=== PATIENT | female | born 1945 | race Caucasian/White ===

== ENCOUNTER 2016-12-13 10:48 | Inpatient (IN) | payer OTHER ==
[~2016-12-13] VITALS: Ht 152.4 cm; Wt 43.8 kg
--- NOTE | ~2016-12-13 | PR ---
[place], [place] PROGRESS NOTE NAME: LUIS GASPAR UNIT #: [id number] ROOM: 428 DOCTOR: FLAVIA ELDRIDGE MD BIRTHDATE: [birth year] DOS: 12/17/2016 SUBJECTIVE: She has been still complaining of pain in the back of the chest. Denies symptoms of nausea, vomiting, diarrhea. MRI of the spine was completed yesterday. OBJECTIVE: VITAL SIGNS: Shows a normal temperature, respiratory rate 20, heart rate of 80, blood pressure 186/60-126/51. Pulse oxygen saturation of the patient on 2 L nasal cannula 95% saturation. HEENT: Showed no acute change. NECK: Supple. CARDIOVASCULAR SYSTEM: S1, S2 is audible. LUNGS: The patient was noted without any wheeze or crackles. ABDOMEN: Soft, nontender. LABORATORY DATA: MRI of the thoracic spine for this patient was reviewed with the patient the results were reported by the Radiology Services as acute versus subacute compression fracture of T6, T7, T8, T10 and T12 vertebral bones. severe end plate compression of the L2 was also described. Mild retropulsion of the patient with underlying degenerative disk disease the patient was described focal area with mild central stenosis. IMPRESSION: 1. The patient with multilevel compression fractures the patient someone will be acute the other one could be old resulting current chest pain. 2. Acute exacerbation of chronic obstructive pulmonary disease as well. 3. History of chronic prednisone use as well. PLAN OF TREATMENT: Assessment by the invasive radiologist for kyphoplasty. ASSESSMENT: The patient would be considered. Continue pain management otherwise. Supportive therapy, plan of management, other treatment plan as in progress without any changes need to be done today. She was started on usual dose of prednisone 10 mg daily and the IV steroids that were discontinued. Continuation of the doxycycline for the patient for the medical and acute bronchitis. [place], [place] PROGRESS NOTE NAME: LUIS GASPAR UNIT #: [id number] ROOM: 428 DOCTOR: FLAVIA ELDRIDGE MD BIRTHDATE: [birth year] FLAVIA LEWIS MD CM:PNTRANS [id number] FLAVIA RHODES MD 12/17/16 1326 interface
--- NOTE | ~2016-12-13 | PR ---
[place], [place] PROGRESS NOTE NAME: LUIS GASPAR UNIT #: [id number] ROOM: 428 DOCTOR: FLAVIA ELDRIDGE MD BIRTHDATE: [birth year] DOS: 12/19/2016 PULMONARY FOLLOWUP NOTE SUBJECTIVE: The patient was seen and examined on 12/19/2016. She has been currently resting comfortably on the bed at this time. She has not been noted any symptoms of chest pain or any abdominal pain. The patient had been successfully treated with kyphoplasty of T10 and T12 vertebral fracture. ____ T7, T6 and T8 was not done because of contraindication per Radiology service's note. The coughing of the patient and shortness of breath of the patient has been improving. OBJECTIVE: VITAL SIGNS: Showed normal temperature, respiratory rate 20, heart rate 100, blood pressure 133/44. ____. Pulse oxygen saturation on 3 liters nasal cannula was 97% saturation. HEENT: Examination shows no new change. NECK: Supple. CARDIOVASCULAR SYSTEM: S1, S2 audible. LUNGS: Shows no wheezing or crackles at the present time. ABDOMEN: Soft, nontender. IMPRESSION: 1. Multilevel compression fracture of the thoracic spine with back pain for the patient status post kyphoplasty of two of the thoracic vertebral bone. 2. The patient with resolving chronic obstructive pulmonary disease. 3. Chronic prednisone dependency. PLAN OF TREATMENT: No changes in the plan of management at this time need to be done from the pulmonary standpoint, the patient could be considered for home discharge. She will be continued on the prednisone and other medication of the patient with use of Fosamax, vitamin D, and calcium supplementation. ____ recommended for the patient in the office as previously. Continue pain control. [place], [place] PROGRESS NOTE NAME: LUIS GASPAR UNIT #: [id number] ROOM: 428 DOCTOR: FLVAIA ELDRIDGE MD BIRTHDATE: [birth year] FLAVIA LEWIS MD CM:PNTRANS [phone] FLAVIA RHODES MD 12/19/16 1345 interface
--- NOTE | ~2016-12-13 | CON ---
[place], [place] REPORT OF CONSULTATION [id number] UNIT #: [id number] ROOM: 428 DOCTOR: DEBBIE RHODES MDFLAVIA BIRTHDATE: [birth year] DOS: 12/14/2016 PULMONARY CONSULTATION, EVALUATION AND MANAGEMENT CONSULTATION WAS ORDERED BY: Hospitalist services. REASON FOR CONSULTATION: Assess the patient for chest pain and other respiratory symptoms. HISTORY OF PRESENT ILLNESS: A 71-year-old white female known with history of past multiple hospitalizations for the exacerbation of COPD and bronchial asthma. The patient presented to the Emergency Room as the patient has developed acute pain, which is described in the chest for this patient and mid and the lower portion of the chest with radiation across the chest. The pain was described to be quite severe. The pain was described to be sharp and dull other times scale of 1-10 up to 8 or 9. The patient stated that because of the shortness of breath, she could not catch her breath. She has been noted with mild cough, but there was no sputum expectoration. She denies any symptoms of hemoptysis. She has been noted mild wheezing intermittently. REVIEW OF SYSTEMS: CONSTITUTIONAL: The patient noticed symptoms of fatigue and tiredness. Denies symptoms of fever or chills. EYES: Denies any burning, redness, or tenderness. EARS, NOSE, AND THROAT: No sore throat, hoarseness, otalgia, postnasal drainage or epistaxis. CARDIOVASCULAR SYSTEM: Denies anginal pain, edema or pain of the lower extremities. GASTROINTESTINAL: Denies any nausea, vomiting, dysphagia, abdominal pain, hematemesis, melena, abnormal weight loss history. SKIN: No lesions or rashes. MUSCULOSKELETAL: No acute joint pain, redness or tenderness noted except the current pain in the back. CENTRAL NERVOUS SYSTEM: Denies dizziness, headache, diplopia or syncopal episodes. Remaining systems were reviewed with the patient, they were noted all negative. PAST MEDICAL HISTORY: 1. Chronic hypoxic respiratory failure on dependency oxygen. 2. Uncomplicated severe persistent bronchial asthma. 3. Centrilobular emphysema. 4. Chronic prednisone therapy. 5. Diverticulosis. 6. Spastic colon. 7. Nicotine dependence history. 8. Type 2 diabetes mellitus. 9. Gastroesophageal reflux. 10. Essential hypertension. 11. 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 PAST SURGICAL HISTORY: 1. Complete hysterectomy. 2. Tubal ligation. 3. Left carotid endarterectomy. 4. Therapeutic bronchoscopy, last bronchoscopy patient done on last admission in October 2016. 5. Left malleolar fracture surgery. SOCIAL HISTORY: The patient is , lives at home and has 4 children. Smoking started at age [age] years old for this patient pack of cigarettes per day, which has been decreased to of cigarettes per day, intermittent use. There was no history of alcohol use, illicit drug use. FAMILY HISTORY: The patient's mother at age 7272 years old with complication of colon cancer. Father at age 5050 years old, complication of lung cancer. DRUG ALLERGIES: NOTED REMARKABLE ZITHROMAX, LEVAQUIN, ETHAMBUTOL, AND RIFAMPIN. MEDICATIONS: Current administered medications noted as IV Solu-Medrol 60 mg b.i.d., lisinopril, Carafate, Protonix, DuoNeb, citalopram, metoprolol succinate, glipizide, Mucinex, Restoril, acyclovir, doxycycline, Xanax and others. The patient normally taking prednisone between 5 and 10 mg daily at home as well. PHYSICAL EXAMINATION: GENERAL: This is a 71-year-old white female who has been currently noted awake and alert without any distress. Height of 5 feet, weight of 96 pounds, BMI 18. VITAL SIGNS: Shows normal temperature of patient since admission, respiratory rate between 18-20, heart rate 82-70, and blood pressure of patient noted as 120/70-154/52. Pulse oxygen saturation noted 2 liters nasal cannula 94% saturation. HEENT: Head was atraumatic. Eyes nonicterus. NECK: Supple. CARDIOVASCULAR SYSTEM: S1, S2 audible. LUNGS: The patient was noted with moderate reduced breath sounds with occasional wheezing, no crackles. ABDOMEN: Soft, nontender. Bowel sounds present. CENTRAL NERVOUS SYSTEM: The patient's cranial nerves 2-12 intact. No focal deficit. MUSCULOSKELETAL: No deformities. SKIN: No lesions or rashes. LABORATORY DATA: The patient's CBC on 12/13/2016 admission, hemoglobin 10.4, hematocrit 33.4, WBC count normal at 9.2, platelet count mildly elevated to 404,000. PT/PTT yesterday, the patient on admission was normal. Lactic acid yesterday on admission was 1.2, normal. CMP of the patient on admission was noted normal except CO2 of 33 yesterday as well. CBC of this morning [place], [place] REPORT OF CONSULTATION NAME: LUIS GASPAR UNIT #: [id number] ROOM: 428 DOCTOR: FLAVIA ELDRIDGE MD BIRTHDATE: [birth year] essentially remains the same as of yesterday. CMP this morning, the patient also noted about the same as well. One-view chest x-ray was only obtained changes of COPD without any acute pulmonary infiltration. IMPRESSION: 1. The patient had been currently admitted to the hospital noted with acute pain of the back. The patient radiation into the front with strong possibility of acute compression fracture of the spine would be considered in the differential diagnosis with musculoskeletal pain. 2. The patient with mild early acute exacerbation of chronic obstructive pulmonary disease as well with acute bronchitis. 3. History of chronic prednisone dependency. 4. The patient with history of chronic hypoxic respiratory failure, generalized anxiety disorder and several other medical problems noted stable. PLAN OF TREATMENT: Reduce the Solu-Medrol 40 mg b.i.d. and further reduction to be done tomorrow based on the improvement in symptom. Continue current antibiotics for this patient. Collect the sputum for Gram stain and culture if the patient is able to expectorate currently noted with only mild cough without any sputum expectoration. Ordered the x-rays initially of the spine and the thoracic and lumbar spine for the patient for assessment if necessary. Consider obtaining the CT scan of the spine or MRI for this patient, the compression fracture is strongly suspected. If the diagnosis of compression fracture to be confirmed for this patient certainly patient required a consultation with Interventional Radiology Service of the patient for possibility of kyphoplasty. In the meantime, continue maximize the management of current ongoing medical problem. Usual care, other supportive therapy, plan of management as well. Usual care. Supportive therapy. DVT prophylaxis with Lovenox for this patient will be started. Thanks for allowing me to participate in the care of this patient. FLAVIA LEWIS MD CM:CONSTR:REPORT OF CONSULTATION 1554 12/14/16 2341 interface
--- NOTE | ~2016-12-13 | PR ---
[place], [place] PROGRESS NOTE NAME: LUIS GASPAR UNIT #: [id number] ROOM: 428 DOCTOR: DEBBIE RHODES MD,FLAVIA BIRTHDATE: [birth year] DOS: 12/18/2016 SUBJECTIVE: She was planned for the vertebroplasty to be done today of the thoracic spine. She denies symptoms of abdominal pain, chest pain ____ and remains unchanged. Respiratory symptoms were noted stable. OBJECTIVE: VITAL SIGNS: Normal temperature, respiratory rate 20, heart rate 61, blood pressure 102/40. Pulse oxygen saturation on 3 liters nasal cannula 100% saturation. HEENT: No acute change. NECK: Supple. CARDIOVASCULAR: S1, S2 audible. LUNGS: The patient was noted without any wheezing or crackles at the present time. ABDOMEN: Soft, nontender. IMPRESSION: The patient has stable respiratory status with chronic obstructive pulmonary disease for this patient, recurrent hospitalization, chronic prednisone dependency, compression fractures, multilevel of the thoracic spine. PLAN OF TREATMENT: Proceed with the kyphoplasty for this patient/vertebroplasty by the Interventional Radiology Services. Continuation of the previous treatment, therapy plan, and management as in progress. No changes in other treatment. Usual care. Bronchodilators. Continue regular prednisone 10 mg daily. FLAVIA LEWIS MD CM:PNTRANS [id number] FLAVIA RHODES MD 12/18/16 6671 interface
--- NOTE | ~2016-12-13 | PR ---
[place], [place] PROGRESS NOTE NAME: LUIS GASPAR UNIT #: [id number] ROOM: 428 DOCTOR: DEBBIE RHODES MD,FLAVIA BIRTHDATE: [birth year] DOS: 12/15/2016 SUBJECTIVE: The patient is seen and examined on 12/15/2016. She was still complaining of pain in the back. Denies symptoms of ____. Denies symptoms of rather cough. Shortness of breath has been doing well. Denies symptoms of abdominal pain. OBJECTIVE: VITAL SIGNS: The patient shows the temperature normal, respiratory rate 18, heart rate 76, blood pressure 154/61 ____. Intake was noted 1500, the output 800 mL, pulse oxygen saturation on 2 liters nasal cannula 98% saturation. HEENT: Showed no acute change. NECK: Supple. CARDIOVASCULAR: S1, S2 audible. LUNGS: The patient was noted without any wheezing or crackles. ABDOMEN: Soft, nontender. LABORATORY DATA: X-ray of the thoracic spine for this patient was noted with evidence of T11, T9, T7 and possible T12 compression fracture of indeterminate age. The blood culture for the patient were noted without any bacterial growth. IMPRESSION: The patient who has been currently noted with chronic obstructive pulmonary disease exacerbation, which is responding to treatment with multilevel compression fracture, etiology of the pain for this patient as suspected, has been noted with current chest x-ray. PLAN OF TREATMENT: The patient was planned for the MRI tomorrow and should be considered a candidate for kyphoplasty based on the further assessment. Interventional Radiology, consultation should be obtained. The pain management continued to be done with the current pain medications. The dose of Solu-Medrol will be further decreased to 40 mg daily since the patient has responded to treatment with the improvement in the respiratory complaints. FLAVIA LEWIS MD CM:PNROXANNE 1258 FLAVIA RHODES MD 12/16/1635 interface
--- NOTE | ~2016-12-13 | PR ---
[place], [place] PROGRESS NOTE NAME: LUIS GASPAR UNIT #: [id number] ROOM: 428 DOCTOR: FLAVIA EDLRIDGE MD BIRTHDATE: [birth year] DOS: 12/16/2016 SUBJECTIVE: She was still complaining of pain in the back, was scheduled for MRI of the spine for this patient for further assessment and possible consideration of candidate for the kyphoplasty. She does have mild cough. Denies symptoms of ____ wheezing which are noted significant or acute shortness of breath at rest. OBJECTIVE: VITAL SIGNS: Normal temperature, respiratory rate 16, heart rate 95, blood pressure 148/68. Intake for the patient recorded 1320 mL, the outputs were not documented. Pulse oxygen saturation on 2 L nasal cannula was 96% saturation. HEENT: Examination showed no acute change. NECK: Supple. CARDIOVASCULAR: S1, S2 audible. LUNGS: The patient was noted without any wheezing or crackles at the present time. ABDOMEN: Soft, nontender. IMPRESSION: 1. The patient with atraumatic acute compression fracture for the patient of T9, T11, T7, and T12 vertebra bone as well. The exact determination of the age could not be made; however, some of them will be considered acute consistent with the patient's acute onset of pain. 2. History of osteopenia for the patient. 3. Chronic prednisone dependency with exacerbation of chronic obstructive pulmonary disease for the patient, which has been noted stable with progressive resolution. PLAN OF TREATMENT: Proceed with the MRI for this patient. Discontinue Solu-Medrol. Start the patient on prednisone 10 mg daily. Pain management to be continued. All other supportive plan of therapy and management, plan of care. [place], [place] PROGRESS NOTE NAME: LUIS GASPAR UNIT #: [id number] ROOM: 428 DOCTOR: FLAVIA ELDRIDGE MD BIRTHDATE: [birth year] FLAVIA LEWIS MD CM:PNTRANS [id number] 1145 FLAVIA RHODES MD 12/16/16 1146 interface
[~2016-12-13 10:48] MED LIST: ADVAIR 250/501 EA INH; ALBUTEROL0.09 MG/A2 IH; ALBUTEROL2.5 MG/0.5 INH; AZACTAM1 GM IJ; AZACTAM1 GM IV; B12,B-12,B 12500 MC1 PO; BACTRIM DS 8001 TA1 PO; CARAFATE1 G1 PO; CEFEPIME1 GM/50 ML IV; CELEXA20 MG PO; CITALOPRAM HYDR20 MG PO; CLEOCIN150 MG PO; Carafate1 GM PO; DELTASONE20 MG PO; DOXYCYCLINE MO100 M1 PO; DOXYCYCLINE100 M3 PO; DOXYCYCLINE100 MG PO; DUONEB 3 MG/3 ML3 M1 INH; ETHAMBUTOL HYD400 MG PO; FLEXERIL10 MG PO; GLIPIZIDE5 M1 PO; GLIPIZIDE5 MG PO; HYDROCODONE BIT1 T11 PO; LEVOFLOXACIN500 MG PO; LISINOPRIL20 MG PO; LISINOPRIL5 MG PO; MAXIPIME1 GM IV; MEDROL DOSEPAK4 MG PO; METHYLPREDNI40 MG/M1 IV; METOPROLOL SUCC25 M2 PO; MOTRIN800 MG PO; MUCINEX600 MG PO; NICODERM14 MG/24 H T; NOVAPLUS SOLU-125 MG IV; NOVAPLUS SOLU-M40 MG IV; OXYGEN NAS; Orphenadrine C100 MG PO; PERCOCET 325 MG1 TAB PO; PHENERGAN25 M3 PO; PREDNICOT10 MG PO; PREDNICOT20 MG PO; PREDNISONE10 M1 PO; PREDNISONE10 MG PO; PREDNISONE20 M1 PO; PREDNISONE20 MG PO; PROAIR HFA0.09 MG/AC IH; PROAIR HFA8.5 GM INH; PROTONIX40 MG PO; PROVENTIL2 MG PO; Phenergan25 MG PO; RIFADIN300 MG PO; SEPTRA DS 800 M1 TAB PO; SYMBICORT1 AE1 INH; TRAMADOL HCL50 MG PO; ULTRAM50 MG PO; VENTOLIN 02.5 MG/3 M INH; VIBRAMYCIN100 MG PO; VITAMIN B1250 MCG PO; VITAMIN B12500 MCG PO; VITAMIN D-32000 UNI1 PO; VITAMIN D1000 IU PO; VITAMIN D31000 I2 PO; VITAMIN D50000 I3 PO; XANAX0.25 MG PO; ZITHROMAX Z PA250 MG PO; Zestril,Prinivi40 MG PO
[2016-12-13 10:53] VITALS: BP 120/70
[2016-12-13 11:21] LABS: BASO % 0.2 % (0.0-1.0); EOS % 0.3 % (1.0-4.0); HEMATOCRIT 33.4 % (37.0-47.0); HEMOGLOBIN 10.4 g/dl (12.0-16.0); IG # 0.1 10*3/uL (0.0-0.1); LYMPH # 1.8 10*3/uL (1.3-4.4); LYMPH % 19.5 % (27.0-41.0); MEAN CELL VOLUME 92.5 fl (81.0-99.0); MEAN CORPUSCULAR HGB 28.8 pg (27.0-31.0); MEAN CORPUSCULAR HGB CONC 31.1 g/dl (33.0-37.0); MEAN PLATELET VOLUME 8.2 fl (9.6-12.3); MONO # 0.6 10*3/uL (0.1-1.0); MONO % 6.7 % (3.0-9.0); NEUT # 6.6 10*3/uL (2.3-7.9); PLATELET COUNT AUTOMATED 404 10*3/uL (130-400); RED BLOOD COUNT 3.61 10*6/uL (4.10-5.10); RED CELL DISTRI WIDTH 16.8 % (0-14.5); WHITE BLOOD COUNT 9.2 10*3/uL (4.8-10.8)
[2016-12-13 11:30] LABS: INTERNATIONAL NORM RATIO 0.9 (2.0-3.5); PROTHROMBIN TIME 9.7 SECONDS (9.0-12.4)
[2016-12-13 11:38] LABS: ALBUMIN 3.2 gm/dl (3.1-4.5); ALKALINE PHOSPHATASE 67 U/L (45-117); BILIRUBIN, TOTAL 0.6 mg/dl (0.2-1.0); BUN 15 mg/dl (7-24); CARBON DIOXIDE 33 mmol/L (21-32); CHLORIDE 97 mmol/L (98-107); CKMB 3.3 ng/ml (0.5-3.6); CPK 42 U/L (26-192); EST GLOM FILT AFRICAN AMERICAN > 60 ml/min; GLUCOSE 90 mg/dL (65-99); MAGNESIUM 2.1 mg/dL (1.5-2.1); POTASSIUM 4.3 mmol/L (3.5-5.1); SGOT/AST 13 IU/L (3-35); SGPT/ALT 23 U/L (12-78); SODIUM 138 mmol/L (136-145); TOTAL PROTEIN 6.4 gm/dL (6.4-8.2)
[2016-12-13 11:42] LABS: C-REACTIVE PROTEIN < 0.29 MG/DL (0-0.3); TROPONIN I < 0.015 ng/ml (<0.045)
[2016-12-13 14:18] VITALS: BP 123/56
[2016-12-13 16:00] VITALS: BP 110/50
[2016-12-13 20:00] VITALS: BP 99/70
[2016-12-14] VITALS: BP 146/53
[2016-12-14 07:05] LABS: BASO % 0.1 % (0.0-1.0); HEMATOCRIT 31.5 % (37.0-47.0); HEMOGLOBIN 9.9 g/dl (12.0-16.0); IG # 0.1 10*3/uL (0.0-0.1); LYMPH # 0.8 10*3/uL (1.3-4.4); LYMPH % 8.6 % (27.0-41.0); MEAN CELL VOLUME 92.1 fl (81.0-99.0); MEAN CORPUSCULAR HGB 28.9 pg (27.0-31.0); MEAN CORPUSCULAR HGB CONC 31.4 g/dl (33.0-37.0); MEAN PLATELET VOLUME 8.3 fl (9.6-12.3); MONO # 0.2 10*3/uL (0.1-1.0); MONO % 2.4 % (3.0-9.0); NEUT # 7.8 10*3/uL (2.3-7.9); NEUT % 87.9 % (47.0-73.0); PLATELET COUNT AUTOMATED 358 10*3/uL (130-400); RED BLOOD COUNT 3.42 10*6/uL (4.10-5.10); RED CELL DISTRI WIDTH 16.6 % (0-14.5); WHITE BLOOD COUNT 8.9 10*3/uL (4.8-10.8)
[2016-12-14 07:26] LABS: HEMOGLOBIN A1c 5.7 % (4.8-5.6)
[2016-12-14 07:38] LABS: ALBUMIN 3.1 gm/dl (3.1-4.5); ALKALINE PHOSPHATASE 61 U/L (45-117); BILIRUBIN, TOTAL 0.4 mg/dl (0.2-1.0); BUN 22 mg/dl (7-24); CARBON DIOXIDE 34 mmol/L (21-32); CHLORIDE 101 mmol/L (98-107); CHOLESTEROL 317 mg/dL (<200); GLUCOSE 73 mg/dL (65-99); HDL CHOLESTEROL 67 mg/dl (40-60); LDL CHOLESTEROL 230 mg/dL (9-159); MAGNESIUM 2.2 mg/dL (1.5-2.1); PHOSPHOROUS 3.6 mg/dL (2.5-4.9); POTASSIUM 4.7 mmol/L (3.5-5.1); SGOT/AST 13 IU/L (3-35); SGPT/ALT 22 U/L (12-78); SODIUM 141 mmol/L (136-145); TOTAL PROTEIN 6.1 gm/dL (6.4-8.2); TRIGLYCERIDES 102 mg/dl (<150); VLDL CHOLESTEROL 20 mg/dL (6-40)
[2016-12-14 07:43] LABS: EST GLOM FILT AFRICAN AMERICAN > 60 ml/min; THYROID STIM HORMONE (HS) 0.971 uIU/ml (0.358-4.75)
[2016-12-14 07:56] LABS: FOLIC ACID 12.27 ng/mL (>5.38); VITAMIN D, 25-HYDROXY 32.3 ng/mL (30-100)
[2016-12-14 08:00] VITALS: BP 132/98
[2016-12-14 12:00] VITALS: BP 154/52
[2016-12-14 16:00] VITALS: BP 126/40
[2016-12-14 20:00] VITALS: BP 131/67
[2016-12-15] VITALS: BP 137/43
[2016-12-15 08:00] VITALS: BP 154/60
[2016-12-15 12:00] VITALS: BP 126/56
[2016-12-15 16:00] VITALS: BP 135/42
[2016-12-15 20:00] VITALS: BP 144/40
[2016-12-16] VITALS: BP 137/51
[2016-12-16 08:00] VITALS: BP 148/68
[2016-12-16 16:00] VITALS: BP 153/91
[2016-12-16 20:00] VITALS: BP 133/46
[2016-12-17] VITALS: BP 126/51
[2016-12-17 08:00] VITALS: BP 186/68
[2016-12-17 12:00] VITALS: BP 114/93
[2016-12-17 16:00] VITALS: BP 103/75
[2016-12-17 20:00] VITALS: BP 98/46
[2016-12-17 23:33] LABS: ABG BASE EXCESS 1.9 mmol/L (-2.0-2.0); ABG CO2 CONTENT 29.7 mmol/L (23-27); ABG TEMPERATURE 98.4 F (98.0-99.0); ARTERIAL BLOOD GAS PH 7.329 (7.35-7.45); ARTERIAL BLOOD GAS PO2 98.6 mmHg (80-90)
[2016-12-18] VITALS (25 sets, daily range): BP systolic 91–145; BP diastolic 40–82
[2016-12-19] VITALS: BP 149/63
[2016-12-19 04:00] VITALS: BP 112/49
[2016-12-19 07:08] LABS: BUN 12 mg/dl (7-24); CARBON DIOXIDE 29 mmol/L (21-32); CHLORIDE 101 mmol/L (98-107); EST GLOM FILT AFRICAN AMERICAN > 60 ml/min; GLUCOSE 116 mg/dL (65-99); POTASSIUM 4.1 mmol/L (3.5-5.1); SODIUM 138 mmol/L (136-145)
[2016-12-19 08:00] VITALS: BP 133/44
[2016-12-19 12:00] VITALS: BP 124/69
[2016-12-19] MEDS ORDERED: DOXYCYCLINE100 M3 PO (15:10)
[2016-12-19] MEDS ORDERED: SIMVASTATIN40 MG PO (15:10)
[2016-12-19] MEDS ORDERED: PREDNISONE10 MG PO (15:10)
== END 2016-12-19 16:48 | disposition home health service (06) | DRG 516 ==
LOC: ED 10:48 → 4E 12:14 → EDHOLD 12:14 → 4E 12:53
PROVIDERS: Emergency Medicine; Internal Medicine
PROC: 0PU43JZ Supplement Thoracic Vertebra with Synthetic Substitute, Percutaneous Approach (ICD-10-PCS; principal; 2016-12-18)
DX: M48.54XA Collapsed vertebra, not elsewhere classified, thoracic region, initial encounter for fracture (principal); J44.1 Chronic obstructive pulmonary disease with (acute) exacerbation; J96.11 Chronic respiratory failure with hypoxia; E11.649 Type 2 diabetes mellitus with hypoglycemia without coma; F19.20 Other psychoactive substance dependence, uncomplicated; Z99.81 Dependence on supplemental oxygen; I10 Essential (primary) hypertension; D47.3 Essential (hemorrhagic) thrombocythemia; M47.816 Spondylosis without myelopathy or radiculopathy, lumbar region; M54.6 Pain in thoracic spine; D64.9 Anemia, unspecified; F41.9 Anxiety disorder, unspecified; K21.9 Gastro-esophageal reflux disease without esophagitis; M85.80 Other specified disorders of bone density and structure, unspecified site; G47.00 Insomnia, unspecified; E83.41 Hypermagnesemia; F17.210 Nicotine dependence, cigarettes, uncomplicated; Z90.710 Acquired absence of both cervix and uterus; Z98.51 Tubal ligation status; Z90.49 Acquired absence of other specified parts of digestive tract; Z82.49 Family history of ischemic heart disease and other diseases of the circulatory system; Z80.8 Family history of malignant neoplasm of other organs or systems; Z79.52 Long term (current) use of systemic steroids; Z88.0 Allergy status to penicillin; Z88.1 Allergy status to other antibiotic agents; Z79.51 Long term (current) use of inhaled steroids; Z79.899 Other long term (current) drug therapy; Z80.0 Family history of malignant neoplasm of digestive organs; Z80.1 Family history of malignant neoplasm of trachea, bronchus and lung

== ENCOUNTER 2016-12-21 15:07 | Emergency (ER) | payer OTHER ==
[~2016-12-21] VITALS: Ht 152.4 cm; Wt 43.5 kg
[~2016-12-21 15:07] MED LIST changes: +SIMVASTATIN40 MG PO
== END 2016-12-21 16:28 | disposition home or self-care (01) ==
LOC: ED 15:07
DX: S20.219A Contusion of unspecified front wall of thorax, initial encounter (principal); J44.9 Chronic obstructive pulmonary disease, unspecified; Z87.891 Personal history of nicotine dependence; Z90.49 Acquired absence of other specified parts of digestive tract; F41.9 Anxiety disorder, unspecified; E11.9 Type 2 diabetes mellitus without complications; I10 Essential (primary) hypertension; K21.9 Gastro-esophageal reflux disease without esophagitis; E78.00 Pure hypercholesterolemia, unspecified; M19.90 Unspecified osteoarthritis, unspecified site; Z88.0 Allergy status to penicillin; Z88.1 Allergy status to other antibiotic agents; Z79.899 Other long term (current) drug therapy; Z99.81 Dependence on supplemental oxygen; W18.30XA Fall on same level, unspecified, initial encounter; Y93.89 Activity, other specified; Y92.009 Unspecified place in unspecified non-institutional (private) residence as the place of occurrence of the external cause; Y99.9 Unspecified external cause status

== ENCOUNTER 2017-01-05 12:41 | Inpatient (IN) | payer OTHER ==
[~2017-01-05] VITALS: Ht 152.4 cm; Wt 42.6 kg
--- NOTE | ~2017-01-05 | PR ---
[place], [place] PROGRESS NOTE NAME: LUIS GASPAR UNIT #: [id number] ROOM: 508 DOCTOR: FLAVIA ELDRIDGE MD BIRTHDATE: [birth year] DOS: 01/09/2017 SUBJECTIVE: She has been noted comfortable at this time, resting in the bed, continued improvement in the symptoms of shortness of breath. There were no symptoms of chest pain. There was no abdominal pain. OBJECTIVE: VITAL SIGNS: For the patient which have been recorded showed the temperature of the patient noted as normal. The respiratory rate of the patient recorded as 20. Heart rate of 82. Blood pressure 149/62. The pulse oxygen saturation of the patient recorded on 2.5 L nasal cannula 96% saturation. HEENT: Examination shows head was atraumatic. Eyes nonicterus. NECK: Supple. CARDIOVASCULAR: S1, S2 is audible. LUNGS: The patient was noted without any wheezing or crackles at this time. ABDOMEN: Soft, nontender. LABORATORY DATA: CBC this morning was noted with hemoglobin 8.6, hematocrit 27.8 with normal WBC count and platelet count. CMP was noted normal BUN and creatinine. IMPRESSION: 1. The patient who has been currently noted with stable respiratory failure for the medical management of acute hypercapnic and hypoxic respiratory failure, chronic hypercapnic and hypoxic respiratory failure. 2. Unintentional drug overdose for the patient with narcotics and benzodiazepines. 3. Chronic obstructive pulmonary disease exacerbation as well. 4. Coronary artery disease was suspected for the patient with possibility of [id number] elevation myocardial infarction, already been addressed by the Cardiology Services, Dr. Laura. PLAN OF TREATMENT: The patient will be continued with the current plan of therapy from the pulmonary standpoint as these were changed yesterday. Ambulation for the patient will be considered. Consider possible discharge for this patient in the home setting for this patient possibly tomorrow once the patient achieves appropriate ambulatory status for this patient with possible home health therapy for the patient if necessary. The patient could be transferred from the intensive care unit to telemetry floor. Other supportive care therapy, plan of management. Usual care. [place], [place] PROGRESS NOTE NAME: LUIS GAPSAR UNIT #: [id number] ROOM: 508 DOCTOR: FLAVIA ELDRIDGE MDTE: [birth year] FLAVIA LEWIS MD CM:PNROXANNE [id number] FLAVIA RHODES MD 01/10/17 0923 interface
--- NOTE | ~2017-01-05 | PR ---
[place], [place] PROGRESS NOTE NAME: LUIS GASPAR [facility] #: [id number] UNIT #: [id number] ROOM: [facility] DOCTOR: CIERA PETTIT MD BIRTHDATE: [birth year] DOS: 01/08/2017 CARDIOLOGY PROGRESS NOTE SUBJECTIVE: The patient was seen at her bedside today in the Intensive Care Unit with multiple family members in attendance. She is a 71-year-old woman who presented to the hospital with decreased level of consciousness, most likely due to excessive pain medication. The patient has been on chronic steroids and was in the hospital recently with a compression fracture, which was treated with a kyphoplasty. She continues to have left lateral chest pain, which is reproducible on exam. Upon admission, she was given Narcan with improvement in her sensorium. Her initial electrocardiogram did, however, show new T-wave inversions across the precordium. She does have mild elevation in troponin, which does not show a typical rise and fall pattern to suggest acute myocardial infarction and thus far, we have been treating her medically. PHYSICAL EXAMINATION: GENERAL: She is an elderly white female who is awake, alert and oriented. She does appear comfortable today. VITAL SIGNS: Pulse is 90 and regular, blood pressure is 102/48. She is afebrile. NECK: Supple. She has no jugular distention. Carotids are full. I heard no bruits. LUNGS: Respirations are unlabored. Her chest is clear with diminished breath sounds at the bases. She had no wheezes or rales. HEART: Regular rhythm with a fourth heart sound. I did not hear a third heart sound. ABDOMEN: Soft. EXTREMITIES: Showed no edema. IMPRESSION: 1. Acute on chronic hypercarbic respiratory failure, which appears to have improved. This was triggered by overuse of narcotic pain medications, which had been prescribed for back pain, compression fracture and kyphoplasty. 2. Chronic obstructive pulmonary disease. 3. Widespread vascular disease. The patient has been documented as having carotid vascular disease and is status post endarterectomy. In addition, she does appear to have peripheral vascular disease based on her examination. 4. Abnormal electrocardiographic changes with anterior T-wave inversions indicating the presence of probable coronary artery disease even though a stress test in 07/2016 was normal. I did explain to the patient and her family that catheterization is not a risk-free procedure and that patients have had myocardial infarctions, strokes, and vascular complications from the procedure. Her age, body habitus, and apparent malnutrition do make her a riskier candidate than the average patient for catheterization and certainly for revascularization. At the present time, she seems to be doing well with medical therapy. I would like to continue beta blockers and switch her to oral nitrates. I will also continue dual antiplatelet therapy. I will repeat an EKG. At this time, however, I think [place], [place] PROGRESS NOTE NAME: LUIS GASPAR UNIT #: [id number] ROOM: [facility] DOCTOR: CIERA PETTIT MD BIRTHDATE: [birth year] that her potential for benefit from catheterization is much less than her potential for harm and therefore, I would recommend against it. The patient and family seem to understand this recommendation and agree to conservative therapy. I thank the hospitalist group for asking our advice regarding the patient's care. CIERA PETTIT MD CM:PNTRANS [id number] CIERA PETTIT MD 01/09/17 0403 interface
--- NOTE | ~2017-01-05 | EKG ---
[place], [place] ELECTROCARDIOGRAM REPORT NAME: LUIS GASPAR UNIT #: [id number] ROOM: 508 DOCTOR: CIERA PETTIT MD BIRTHDATE: [birth year] DOS: 01/09/2017 TIME: 08:35 a.m. FINDINGS: 1. Normal sinus rhythm with low voltage in extremity lead. 2. Abnormal T wave inversion across precordium consistent with ischemia. 3. No change from previous EKGs. 4. Abnormal tracing. CIERA PETTIT MD CM:EKGRPT:ELECTROCARDIOGRAM REPORT 23 38 CIERA PETTIT MD
--- NOTE | ~2017-01-05 | PR ---
[place], [place] PROGRESS NOTE NAME: LUIS GASPAR UNIT #: [id number] ROOM: [facility] DOCTOR: DEBBIE RHODES MD,FLAIVA BIRTHDATE: [birth year] DOS: 01/07/2017 PULMONARY FOLLOWUP NOTE SUBJECTIVE: The patient has been noted comfortable at this time without any distress. She has not been noted any symptoms of chest pain or any abdominal pain. She has been noted anxiety this morning with elevation of blood pressure was also noted tachycardia. The BiPAP has been started for the patient, which has resulted in improvement in the tachycardia and anxiety. Currently, the patient has been comfortably resting on the bed using the BiPAP and was noted comfortable. OBJECTIVE: VITAL SIGNS: For the patient, which has been recorded showed the temperature noted as normal. The respiratory rate of the patient recorded as 18-30. Heart rate of 70-113, blood pressure ____-163/52. HEENT: Examination shows no acute change. NECK: Supple. CARDIOVASCULAR: S1, S2 is audible. LUNGS: Noted without any wheezing or crackles. ABDOMEN: Soft, nontender, nondistended. EXTREMITIES: Shows no edema, clubbing or cyanosis. LABORATORY DATA: Blood culture from the 9th of this month showed no bacterial growth. CBC was done this morning, WBC count 12.9, hemoglobin 9.1, hematocrit 30.0, platelet count 308,000. CMP, the patient's BUN 12, creatinine was normal. IMPRESSION: 1. Acute exacerbation of chronic obstructive pulmonary disease. The patient with previous multilevel compression fracture with kyphoplasty as well. 2. General anxiety disorder with hypertension and tachycardia. 3. Suspected non-ST segment elevation myocardial infarction as well. PLAN OF TREATMENT: Continuation of current therapy, plan of management as in progress. Usual care, other supportive plan of management and care to be continued. Continue the BiPAP for this patient for the support of the respiratory failure, which is noted acute on chronic with hypercapnia. ____ the patient could be given a lower dose as necessary. Other usual plan of management and therapies. Supportive care. [place], [place] PROGRESS NOTE NAME: LUIS GASPAR UNIT #: [id number] ROOM: [facility] DOCTOR: AZFLAVIA GALLARDO MD BIRTHDATE: [birth year] FLAVIA LEWIS MD CM:IOANA [id number] FLAVIA RHODES MD 01/08/17 0248 interface
--- NOTE | ~2017-01-05 | EKG ---
[place], [place] ELECTROCARDIOGRAM REPORT NAME: LUIS GASPAR UNIT #: [id number] ROOM: [facility] DOCTOR: HODAN EVEERTT,CIERA BIRTHDATE: [birth year] DOS: 01/06/2017 TIME: 8:48 a.m. IMPRESSION: Sinus rhythm at rate of 83 with normal axis. The patient does have deep symmetric T-wave inversions across the precordium suggesting anterolateral ischemia. No significant change noted from previous tracing. Abnormal electrocardiogram. CIERA PETTIT MD CM:EKGRPT:ELECTROCARDIOGRAM REPORT [id number] CIERA PETTIT MD
--- NOTE | ~2017-01-05 | EKG ---
[place], [place] ELECTROCARDIOGRAM REPORT NAME: LUIS GASPAR UNIT #: [id number] ROOM: [facility] DOCTOR: CIERA PETTIT MD BIRTHDATE: [birth year] DOS: 01/08/2017 TIME: 07:53 a.m. FINDINGS: 1. Sinus rhythm at rate 74 with short WI interval. 2. Deep symmetric T-wave inversions noted across precordium. 3. No ST-elevation seen. 4. Study suggests anterior ischemia. CIERA PETTIT MD CM:EKGRPT:ELECTROCARDIOGRAM REPORT [id number] CIERA PETTIT MD
--- NOTE | ~2017-01-05 | PR ---
[place], [place] PROGRESS NOTE NAME: LUIS GASPAR UNIT #: [id number] ROOM: 508 DOCTOR: DEBBIE RHODES MD,FLAVIA BIRTHDATE: [birth year] DOS: 01/10/2017 PULMONARY PROGRESS NOTE SUBJECTIVE: The patient was seen and examined on 01/10/2017, has been noted comfortable at this time, resting on the bed without any acute respiratory complaints. Shortness of breath noted at baseline. Minimal cough was noted. OBJECTIVE: VITAL SIGNS: Showed normal temperature, respirations 18, heart rate 71, blood pressure 141/56. Pulse oxygen saturation of the patient noted on 2.5 liters nasal cannula 98% saturation. HEENT: No acute change. NECK: Supple. CARDIOVASCULAR: S1, S2 audible. LUNGS: Clear of any wheezing or crackles. ABDOMEN: Soft, nontender. IMPRESSION: 1. The patient with resolving acute hypercapnic hypoxic respiratory failure with ongoing intentional drug overdose with narcotics and benzodiazepine combination. 2. Acute exacerbation of COPD, resolving. 3. Suspected non-ST segment elevation myocardial infarction with current conservative treatment per recommendation of Cardiology Services. PLAN OF TREATMENT: The patient could be considered for home discharge on her usual home medication from the Pulmonary standpoint. Other supportive therapy, plan and management as well. Usual care. Supportive plan of management and treatments. FLAVIA LEWIS MD CM:PNTRANS [phone] FLAVIA RHODES MD 01/11/17 0205 interface
--- NOTE | ~2017-01-05 | CON ---
[place], [place] REPORT OF CONSULTATION NAME: LUIS GASPAR UNIT #: [id number] ROOM: [facility] DOCTOR: FLAVIA ELDRIDGE MD BIRTHDATE: [birth year] DOS: 01/06/2017 CONSULTATION REQUESTED BY: Hospitalist services. REASON FOR CONSULTATION: Assessment of change in mental status with acute respiratory failure. HISTORY OF PRESENT ILLNESS: A 71-year-old white female recently admitted to the hospital, treated for acute exacerbation of COPD. The patient has been managed as she has been noted with multilevel compression fracture of spine and underwent kyphoplasty as well of the thoracic vertebral bone. The patient has been discharged. She has been noted difficulty to arouse the patient in the home setting by the family members. The EMS arrived for this patient. The patient has been acting loopy as per family members from yesterday morning. The patient was not answering any questions and conversing with them. She has been assessed for this at home. The patient was brought to the hospital. She was given Narcan that has resulted in partial improvement in her mental status. She was brought to the emergency room. The patient's arterial blood gases were done, which shows significant hypercarbia in a patient with a decreased pH. The patient was started on the BiPAP and then later on transferred to Intensive Care Unit. This morning, she has been noted fully awake and alert. She has been using oxygen supplementation nasal cannula, able to understand me. She denies any symptoms of coughing. She does have mild cough at this time and some wheezing as well. REVIEW OF SYSTEMS: CONSTITUTIONAL: The patient was complaining of fatigue. Denies any fever or chills. EYES: Denies any burning, redness, or tenderness. EARS, NOSE, THROAT SYMPTOMS: No sore throat, hoarseness, otalgia, postnasal drainage. CARDIOVASCULAR SYSTEM: Denies anginal pain, edema or pain of the lower extremities. GASTROINTESTINAL SYSTEM: Denies dysphagia, nausea, vomiting, diarrhea, abdominal pain, hematemesis, or melena. SKIN: Denies any lesions or rashes. MUSCULOSKELETAL: The patient has been still noted with some pain in the back. CENTRAL NERVOUS SYSTEM: The patient denies any symptoms of focal neurologic deficit. Remaining systems were reviewed with the patient, they were noted all negative. PAST MEDICAL HISTORY: 1. Noted with history of uncomplicated severe persistent bronchial asthma. 2. Centrilobular emphysema. 3. Chronic hypoxic respiratory failure and chronic hypercapnia secondary to advanced COPD as well. 4. History of chronic prednisone use. 5. Diverticulosis. 6. History of spastic colon. [place], [place] REPORT OF CONSULTATION NAME: LUIS GASPAR UNIT #: [id number] ROOM: [facility] DOCTOR: DEBBIE RHODES MDFLAVIA BIRTHDATE: [birth year] 7. Past nicotine dependence. 8. Type 2 diabetes mellitus. 9. Gastroesophageal reflux. 10. Essential hypertension. 11. Mycobacterium avium-intracellulare infection of the lungs for the patient with allergic drug reaction to all other medications, so treatment has been discontinued because of intolerance and the side effects. 12. Multilevel compression fracture, atraumatic, of the thoracic spine with kyphoplasty of T10 and T12 vertebral bones for this patient in November of 2016. SURGICAL HISTORY: 1. Complete hysterectomy. 2. Tubal ligation. 3. Left carotid endarterectomy. 4. Past several therapeutic bronchoscopies. Last bronchoscopy done in 10/2016. 5. Left malleolar fracture surgery of the foot. 6. Vertebroplasty which was done of T10 and T12 for this patient in 11/2016. SOCIAL HISTORY: The patient is , has 4 children, lives at home. Smoking started at age [age] years old, about a pack of cigarettes per day. The patient has decreased the tobacco use and smoked a few cigarettes a day intermittently. Denies history of alcohol use or any illicit drugs. FAMILY HISTORY: The patient's mother at 72 years old from complication of cancer of the colon. Father at 50 years old from complication of lung cancer. DRUG ALLERGIES HISTORY: Noted allergies to: 1. Zithromax. 2. Levaquin. 3. Ethambutol. 4. Rifampin. MEDICATIONS: Current administered medications were noted use of lisinopril, citalopram, metoprolol succinate, Fosamax, simvastatin, Carafate, gabapentin, nitroglycerin, enoxaparin, Protonix, IV Solu-Medrol 60 mg q.8 h., chewable aspirin, DuoNeb, Xanax, doxycycline and other p.r.n. medication administration. PHYSICAL EXAMINATION: GENERAL: This is a 71-year-old female who has been noted currently awake and alert without any distress. Height of this patient recorded as height of 5 feet, weight of 94 pounds with BMI 18.3. VITAL SIGNS: Normal temperature at 99.7 degrees Fahrenheit recorded in the last 24 hours, respiration 21-22, heart rate 94-78, blood pressure 175/58 for this patient to 160/70. Intake is 2900 mL, output 650 mL since admission. Pulse oxygen saturation on 3 liters nasal cannula 99% saturation; previous room air was 85% saturation. HEENT: Head was atraumatic. Loss of muscle mastication. NECK: Supple. CARDIOVASCULAR: S1, S2 audible. [place], [place] REPORT OF CONSULTATION NAME: LUIS GASPAR UNIT #: [id number] ROOM: [facility] DOCTOR: KATHERYN ELDRIDGE MDM BIRTHDATE: [birth year] LUNGS: Examination of lungs for this patient was noted with generalized reduced air entry of the lungs, scattered occasional wheezing, no crackles. ABDOMEN: Soft, nontender, flat. EXTREMITIES: Shows no edema, clubbing, cyanosis. CENTRAL NERVOUS SYSTEM: Limited. There were no focal deficits. SKIN: Visible skin shows scattered bruising of the skin for this patient related to chronic prednisone dependency. MUSCULOSKELETAL: Does not show any acute deformities. LABORATORY DATA: Urine drug screen in the patient which was noted on admission noted positive for THC, benzodiazepine and opiates. CBC of patient yesterday on 01/05/2017, hemoglobin 9.7, hematocrit 33.5, WBC count was normal. Lactic acid yesterday was normal at 1.3. Arterial blood gas for this patient that was done yesterday shows pH of 7.35, pCO2 of 74, pO2 of 100. CMP of the patient that was done yesterday noted normal BUN and creatinine. Carbon dioxide 39. Troponin minimally elevated at 0.054. PT/PTT yesterday was noted as normal. CT scan of the head, which was done without contrast shows no acute intracranial abnormalities. Arterial blood gases repeated again shows pH of 7.34, pCO2 of 67, pO2 of 122 with the use of the BiPAP. Second and third set of troponin were still noted with mild elevation in troponin. The last set for the patient shows troponin this morning 0.060. The INR was noted as normal again. CMP repeated again this morning, normal BUN and creatinine. Carbon dioxide 37, remaining electrolytes were normal. CBC of patient essentially remains almost the same as previously. Arterial blood gas 2 liters nasal cannula this morning, pH of 7.44, pCO2 of 45.4, pO2 of 76.4. The chest x-ray, one view, that was done in the Emergency Room on admission for the patient was also reviewed, shows no acute abnormalities, evidence of a kyphoplasty. IMPRESSION: 1. The patient will be currently admitted to the hospital with unintentional drug dose with acute hypercapnic respiratory failure with chronic hypercapnic respiratory failure and acute on chronic hypoxic respiratory failure, remains stable. 2. Resolving past acute exacerbation of chronic obstructive pulmonary disease and bronchial asthma since last admission. 3. Elevation in troponins. The patient with EKG changes, possibility of non-ST segment elevation myocardial infarction currently being considered and consultation has been noted, in progress from Cardiology services, Dr. Laura. 4. History of osteoporosis for this patient with multilevel compression fracture and dependency on prednisone. PLAN OF TREATMENT: Pain management of the patient with avoiding excessive dose of narcotic medications. BiPAP to be continued at the previous setting 14/07 for this patient for the medical hypercarbic respiratory failure. Continue oxygen supplementation, maintain saturation 92% or greater. Possible cardiac assessment/intervention was planned for this patient, but because of multiple comorbid conditions of the patient at this time as discussed with Dr. Laura, the patient will be placed on hold with conservative treatment initially. Once the patient stabilizes, she might be considered for possibility of assessment [place], [place] REPORT OF CONSULTATION NAME: LUIS GASPAR [place] UNIT #: [id number] ROOM: [facility] DOCTOR: FLAVIA ELDRIDGE MD BIRTHDATE: [birth year] with cardiac catheterization. She has been ordered a limited echocardiogram to assess the wall motion abnormalities by Dr. Laura. Other supportive plan of therapy at this time to be continued. Usual care, other plan of management therapy and care. Thank you for allowing me to participate in the care of this patient. FLAVIA LEWIS MD CM:CONSTR:REPORT OF CONSULTATION 1308 01/07/17 0603 interface
--- NOTE | ~2017-01-05 | PR ---
[place], [place] PROGRESS NOTE [id number] UNIT #: [id number] ROOM: 508 DOCTOR: CIERA PETTIT MD BIRTHDATE: [birth year] DOS: 01/09/2017 SUBJECTIVE: The patient was seen at her bedside today in the Intensive Care Unit on 01/09/2017. She is sitting up in bed and tells me that she feels much better. She is much more alert and conversive than she was a few days ago. She continues to deny any chest pain or palpitations and states that her breathing has improved. Plans are being made for her transfer to the telemetry unit today. PHYSICAL EXAMINATION: VITAL SIGNS: Her pulse is 68 and regular, blood pressure is 152/63. She is afebrile. She weighs 42.6 kilograms with a body mass index of 18.4. NECK: Supple. She has no jugular distention. Carotids are full without bruits. LUNGS: Respirations showed decreased breath sounds bilaterally with mild expiratory prolongation. I heard no wheezes or rales. She had no presacral edema. HEART: Had a regular rhythm. She had a soft fourth heart sound. There was no third heart sound or murmur. The PMI was not displaced. There was no precordial heave, lift or thrill. ABDOMEN: Soft and normally active without masses, organomegaly or bruits. EXTREMITIES: Showed no edema. Peripheral pulses were diminished, but palpable in the feet. LABORATORY DATA: No laboratory studies are available from today as of yet. Her electrocardiogram was also pending. IMPRESSION: 1. Powmv-pd-zyimban hypercarbic respiratory failure, which appears to be improving. This appears to have been triggered by overuse of narcotic pain medications, which were prescribed for her back pain. 2. Recent compression fracture and kyphoplasty. The patient does continue to have back pain and radicular pain in her left chest. 3. Chronic obstructive pulmonary disease. 4. Widespread vascular disease with carotid vascular disease post-endarterectomy and peripheral vascular disease based on her examination. 5. Abnormal electrocardiogram with anterior T-wave inversions indicating the presence of probable coronary artery disease. A stress test in July 2016 was normal with normal left ventricular wall motion. PLAN: I had a long talk with the patient and her family yesterday. Given her multiple medical problems and comorbidities, I believe that the probability of her improving dramatically based on results of the catheterization are very small and therefore, I would withhold catheterization at this time. If her symptoms become more typical of cardiac disease, we can discuss whether catheterization or a repeat stress test would be helpful. For now, she will continue oral nitrates dual antiplatelet therapies and beta blockers for management of her ischemic heart disease. She will also continue statin therapy. [place], [place] PROGRESS NOTE NAME: HUBERTLUIS A UNIT #: [id number] ROOM: 508 DOCTOR: CIERA PETTIT MD BIRTHDATE: [birth year] I thank the hospitalist group for asking our advice regarding her care. CIERA PETTIT MD CM:PNTRANS [phone] CIERA PETTIT MD 01/09/17 1649 interface
--- NOTE | ~2017-01-05 | PR ---
[place], [place] PROGRESS NOTE NAME: LUIS GASPAR UNIT #: [id number] ROOM: [facility] DOCTOR: FLAVIA ELDRIDGE MD BIRTHDATE: [birth year] DOS: 01/08/2017 SUBJECTIVE: She has been noted comfortable at the present time. Noted much better this morning, using oxygen supplementation nasal cannula. There were no symptoms of acute pain described. Shortness of breath, wheezing and other symptoms have been improved markedly. OBJECTIVE: VITAL SIGNS: Normal temperature, respiratory rate 17, heart rate 85, blood pressure 173/67-145/51. The pulse oxygen saturation of the patient on 3 liters nasal canula 100% saturation recorded. HEENT: Showed no new change. NECK: Supple. CARDIOVASCULAR: S1, S2 audible. LUNGS: The patient was noted without any acute wheezing or crackles at the present time. Breaths are noted mild to moderately decreased bilaterally. ABDOMEN: Soft, nontender. IMPRESSION: 1. The patient with resolving acute exacerbation of chronic obstructive pulmonary disease, acute bronchitis and suspected non-ST segment elevation, stable. 2. Uncontrolled hypertension, currently being controlled better. 3. History of Mycobacterium avium-intracellulare infection, intolerance to the medical management. 4. Chronic steroid dependency. PLAN OF TREATMENT: Discontinue the Solu-Medrol. Start the patient's usual dose of prednisone 10 mg daily, discontinue IV. Doxycycline is not needed as well. Proceed with a cardiac catheterization for the patient if needed for the patient with Cardiology recommendation to be done if necessary. The patient noted stable from pulmonary standpoint to undergo cardiac catheterization at this time. The assessment and management has been discussed with the patient's daughters and with the nursing staff. [place], [place] PROGRESS NOTE NAME: LUIS GASPAR UNIT #: [id number] ROOM: [facility] DOCTOR: FLAVIA ELDRIDGE MD BIRTHDATE: [birth year] FLAVIA LEWIS MD CM:PNTRANS [id number] FLAVIA RHODES MD 01/08/17 8623 interface
--- NOTE | ~2017-01-05 | PR ---
[place], [place] PROGRESS NOTE NAME: LUIS GASPAR [facility] #: [id number] UNIT #: [id number] ROOM: 508 DOCTOR: CIERA PETTIT MD BIRTHDATE: [birth year] DOS: 01/10/2017 CARDIOLOGY PROGRESS NOTE SUBJECTIVE: The patient was seen at her bedside today with family in attendance on 01/10/2017. She looks and feels much better. She states that the pain in her back has improved. She is coughing much less and she is breathing easily. She is very alert and conversant. She denies any substernal or neck, chest pains. PHYSICAL EXAMINATION: VITAL SIGNS: Her pulse is 71 and regular, blood pressure is 140/56. She is afebrile. She weighs 42.6 kilograms with a body mass index of 18.4. NECK: Supple. She has no jugular distention. Carotids are full. LUNGS: Respirations are unlabored. Her chest has decreased breath sounds with expiratory prolongation bilaterally. Respirations are unlabored. HEART: Has a regular rhythm with a soft S4 gallop, but no third heart sound or murmur. The PMI was not displaced. ABDOMEN: Soft. EXTREMITIES: Showed no edema. IMPRESSION: 1. Acute on chronic hypercapnic respiratory failure, which appears to have improved. This was triggered by overuse of narcotic pain medications which were prescribed for back pain. 2. Recent compression fracture and kyphoplasty. The patient continues to have back pain, but this is improving. 3. Chronic obstructive pulmonary disease. 4. Widespread vascular disease with carotid vascular disease post-endarterectomy and peripheral vascular disease in her legs. 5. Abnormal electrocardiogram with anterior T-wave inversions indicating probable coronary artery disease, a stress test in 07/2016 was normal with normal left ventricular wall motion. PLAN: I still believe that the risk of catheterization outweighs any potential benefits, especially given her multiple risk factors. At this point, she seems to be on good medical therapy and I would continue that. We will follow up with her in the office in 3-4 weeks. If she develops symptoms that seem more like angina, then we will discuss with her the possibility of catheterization at that time. Unfortunately, I think that her major pathology is still her lungs. I thank the hospitalist group for asking our advice regarding her care. [place], [place] PROGRESS NOTE NAME: LUIS GASPAR UNIT #: [id number] ROOM: 508 DOCTOR: CIERA PETTIT MD BIRTHDATE: [birth year] CIERA PETTIT MD CM:PNTRANS [phone] CIERA PETTIT MD 01/11/17 0143 interface
--- NOTE | ~2017-01-05 | CON ---
[place], [place] REPORT OF CONSULTATION NAME: LUIS GASPAR UNIT #: [id number] ROOM: [facility] DOCTOR: CIERA PETTIT MD BIRTHDATE: [birth year] DOS: 01/06/2017 CARDIOLOGY CONSULTATION REASON FOR CONSULTATION: Abnormal electrocardiogram. HISTORY OF PRESENT ILLNESS: This is one of multiple admissions to the hospital for the patient who is a 71-year-old woman with a long history of obstructive lung disease. She has had multiple hospitalizations for acute exacerbation of underlying respiratory failure. In November of this year, she was hospitalized with acute back pain and did undergo a kyphoplasty by Interventional Radiology. She states that since that time she has had back and left flank pain, which is reproduced by leaning forward, deep breath or palpation of the area. Reportedly, she was acting confused at home and then became unresponsive after taking a pain pill. Emergency medical services were activated. She was given Narcan and improved. She improved further after being placed on BiPAP and given inhaled bronchodilators. Since she has been in the hospital, her blood gas measurements show acute on chronic hypercarbic respiratory failure. Troponin levels have been minimally elevated with a maximum troponin of 0.062. However, there has not been any typical rise and fall pattern to the troponin to suggest an acute coronary event. PAST MEDICAL HISTORY: Includes: 1. Chronic obstructive pulmonary disease with multiple exacerbations. 2. Malnutrition. 3. Mycobacterium avium complex. 4. Respiratory failure with hypoxemia and hypercarbia. 5. Type 2 diabetes mellitus. 6. Essential hypertension. 7. Gastroesophageal reflux disease. 8. Chronic steroid dependence. 9. Hospitalization in 11/2016 with compression fracture. This was treated by Interventional Radiology with kyphoplasty. 10. History of tubal ligation, hysterectomy and appendectomy. 11. Peripheral vascular disease, status post left carotid endarterectomy. FAMILY HISTORY: The patient's mother at age 72 from cervical cancer and a myocardial infarction. Her father at age 59 from bone cancer. Her brother had a 3-vessel bypass at age 38. CURRENT MEDICATIONS: Prior to admission included albuterol by inhaler q.i.d., oxygen 2 liters by continuous nasal cannula, Fosamax 70 mg weekly, alprazolam 0.25 mg q.12 hours, calcium with vitamin D b.i.d., citalopram 40 mg daily, gabapentin 300 mg t.i.d., lisinopril 40 mg daily, metoprolol 25 mg daily, oxycodone q.6 hours (Percocet 325/10), pantoprazole 40 mg daily, prednisone 20 mg daily, simvastatin 40 mg at bedtime and Carafate 1 gram a.c. ALLERGIES: The patient lists allergies to AZITHROMYCIN, PENICILLINS and [place], [place] REPORT OF CONSULTATION NAME: LUIS GASPAR UNIT #: [id number] ROOM: [facility] DOCTOR: CIERA PETTIT MD BIRTHDATE: [birth year] LEVOFLOXACIN. REVIEW OF SYSTEMS: The patient denies diplopia or focal weakness, but she is generally weak. She is chronically dyspneic. She does have left anterior chest pain which is easily reproducible by palpation of her chest. She denies current nausea or vomiting, but does have reflux symptoms. She denies fevers, chills or sweats. She denies change in bowel or bladder habits. She denies any bleeding from any site. She denies any peripheral edema. She denies heat or cold intolerance. Remainder of the review of systems is negative except as noted above. SOCIAL HISTORY: The patient lives with family, she was a smoker, but has quit. She does not consume alcohol. PHYSICAL EXAMINATION: GENERAL: The patient is a slender, elderly white female who is breathless at rest. She is lying in bed in the Intensive Care Unit at a 30-degree angle. VITAL SIGNS: Pulse is 88 and regular, blood pressure is 172/73. She is afebrile. She weighs 42.6 kilograms with a body mass index of 18.4 HEENT: Normocephalic, atraumatic. Extraocular muscles are intact. Sclerae are clear. Pupils are equal, round and reactive to light. Oral mucosa is moist. Tongue is midline. NECK: Supple. She does not have jugular distention. Carotids are full. I heard no bruits. She has a well-healed carotid endarterectomy scar. LUNGS: Respirations are labored at rest. She does have markedly decreased breath sounds with expiratory prolongation bilaterally, but no wheezes or rales. CARDIOVASCULAR: Her heart has a regular rhythm. She has a fourth heart sound, but no third heart sound or obvious murmur. The PMI is not displaced. She has no precordial heave, lift or thrill. ABDOMEN: Soft and normally active without masses, organomegaly or bruits. Palpation of the lower ribs on the left reproduces the patient's presenting chest pain. EXTREMITIES: Showed no clubbing, cyanosis or edema. Peripheral pulses are diminished in the feet. LABORATORY DATA: I reviewed her electrocardiograms and they do indeed show deep symmetric T-wave inversions across the precordium as well as in 1 and aVL. Chest x-ray showed no acute changes or infiltrates. Hemoglobin is 9.1, hematocrit 30.5, there are 9300 white cells. Sodium is 141, potassium 4.2, chloride 100, CO2 of 37, BUN 17, creatinine 0.6. Hemoglobin A1c 5.6. Troponin minimally elevated at 0.062. IMPRESSION: 1. Acute on chronic hypercarbic respiratory failure. 2. Decreased level of consciousness due to pain medications, hypoxemia, hypercarbia, etc. 3. Chronic obstructive pulmonary disease. 4. Vascular disease. The patient has documented carotid vascular disease and is status post endarterectomy. She appears to have peripheral vascular disease based on her examination. It seems very likely that she would have coronary [place], [place] REPORT OF CONSULTATION NAME: LUIS GASPAR UNIT #: [id number] ROOM: [facility] DOCTOR: CIERA PETTIT MD BIRTHDATE: [birth year] artery disease even though her stress test in July was normal. PLAN: I have discussed her situation with her wardrobe image consultant, Dr. Swenson. The patient's pulmonary status is currently close to baseline. It seems very likely that she does have coronary artery disease based on her history and EKG changes. On the other hand, she would be a very poor candidate for any invasive evaluation based on her poor physical status. I think for now we should try to maximize her medications and observe her in the hospital for a day or 2. If she dramatically improves from a pulmonary standpoint and her electrocardiograms remain abnormal, we can have a discussion regarding continued medical therapy or invasive approach. I thank the hospitalist group for asking our advice regarding the patient's assessment and care. CIERA PETTIT MD CM:CONSTR:REPORT OF CONSULTATION 0907 01/07/17 0145 interface
--- NOTE | ~2017-01-05 | PR ---
[place], [place] PROGRESS NOTE NAME: LUIS GASPAR [facility] #: [id number] UNIT #: [id number] ROOM: [facility] DOCTOR: CIERA PETTIT MD BIRTHDATE: [birth year] DOS: 01/07/2017 CARDIOLOGY PROGRESS NOTE SUBJECTIVE: The patient was seen at her bedside in the intensive care unit today, 01/07/2017, for followup of her acute respiratory failure and electrocardiographic changes suggesting possible acute coronary syndrome or ischemia. The patient was noted to become significantly hypertensive overnight. She continues to have musculoskeletal chest pain and tenderness over her right anterior chest and back. She was sleeping when I walked into the room and seemed quite comfortable. She was lying almost flat. She was using BiPAP. PHYSICAL EXAMINATION: VITAL SIGNS: Today, her pulse was 90 and regular, blood pressure is 172/70. She was afebrile. She weighed 42.6 kilograms with a body mass index of 18.4. Pulse oximetry was 97% on BiPAP. NECK: Supple. She had no jugular distention. Skin turgor was slightly decreased. She had no hepatojugular reflux. Carotids were full. LUNGS: Respirations were unlabored with the BiPAP. Her lungs had diminished breath sounds bilaterally, but no obvious wheezes or rales. HEART: Had a regular rhythm with an S4 gallop, but no S3 or significant murmur. ABDOMEN: Soft and normally active. EXTREMITIES: Showed no edema. DIAGNOSTIC DATA: An echocardiogram was done yesterday, 01/06/2017, the study showed normal left ventricular size, wall motion and systolic function with an ejection fraction estimated to be about 65%, mild left ventricular hypertrophy was present. There was normal left ventricular segmental wall motion. IMPRESSION: 1. Acute on chronic hypercarbic respiratory failure, improved. This appears to have been triggered by overuse of narcotic pain medications, which were prescribed for her back pain, recent compression fracture, and kyphoplasty. 2. Chronic obstructive pulmonary disease. 3. Vascular disease. The patient has been documented as having carotid vascular disease and is status post endarterectomy. In addition, she appears to have peripheral vascular disease based on diminished pulses in her feet. Her abnormal electrocardiographic changes with anterior T-wave inversions suggest that she likely does have coronary artery disease as well even though her stress test in July was normal. PLAN: For now, I would like to manage her medically. She is a poor candidate for revascularization with her significant lung disease, malnutrition, chronic steroid use, etc. Today, I will increase her beta hany slightly and continue her topical nitrates. I will place her on dual antiplatelet therapy with aspirin and clopidogrel. We will continue to monitor her in the hospital for the present time. If she does develop worsening EKG changes or symptoms that are more classic for coronary artery disease, we will have to discuss the potential for catheterization; however, in her case, I believe that the risks of catheterization outweigh any potential for long-term benefit. [place], [place] PROGRESS NOTE NAME: LUIS GASPAR UNIT #: [id number] ROOM: [facility] DOCTOR: CIERA PETTIT MD BIRTHDATE: [birth year] I thank the hospitalist group for asking our advice regarding her care. CIERA PETTIT MD CM:PNTRANS [id number] CIERA PETTIT MD 01/07/172131 interface
[2017-01-05 13:12] VITALS: BP 145/52
[2017-01-05 13:12] LABS: ABG BASE EXCESS 13.3 mmol/L (-2.0-2.0); ABG CO2 CONTENT 43.3 mmol/L (23-27); ABG TEMPERATURE 98.6 F (98.0-99.0); ARTERIAL BLOOD GAS PH 7.358 (7.35-7.45)
[2017-01-05] MEDS ORDERED: NEURONTIN300 MG PO (13:50)
[2017-01-05 14:07] LABS: BILIRUBIN 1+ (NEGATIVE); BLOOD TRACE-INTACT (NEGATIVE); CLARITY SL CLOUDY (CLEAR); COLOR YELLOW (YELLOW); GLUCOSE NEGATIVE (NEGATIVE); KETONE 1+ (NEGATIVE); LEUKO ESTERASE NEGATIVE (NEGATIVE); NITRITE NEGATIVE (NEGATIVE); PROTEIN TRACE (NEGATIVE); SPECIFIC GRAVITY 1.025 (1.005-1.030); UROBILINOGEN 0.2 E.U./dl (0.2-1.0)
[2017-01-05 14:13] LABS: BASO % 0.2 % (0.0-1.0); HEMATOCRIT 33.6 % (37.0-47.0); HEMOGLOBIN 9.7 g/dl (12.0-16.0); IG # 0.1 10*3/uL (0.0-0.1); LYMPH # 1.4 10*3/uL (1.3-4.4); LYMPH % 14.3 % (27.0-41.0); MEAN CELL VOLUME 101.5 fl (81.0-99.0); MEAN CORPUSCULAR HGB 29.3 pg (27.0-31.0); MEAN CORPUSCULAR HGB CONC 28.9 g/dl (33.0-37.0); MEAN PLATELET VOLUME 9.4 fl (9.6-12.3); MONO # 0.7 10*3/uL (0.1-1.0); NEUT # 7.6 10*3/uL (2.3-7.9); PLATELET COUNT AUTOMATED 331 10*3/uL (130-400); RED BLOOD COUNT 3.31 10*6/uL (4.10-5.10); RED CELL DISTRI WIDTH 14.8 % (0-14.5); WHITE BLOOD COUNT 9.7 10*3/uL (4.8-10.8)
[2017-01-05 14:16] LABS: BACTERIA TRACE; MUCOUS 1+; URINE REFLEX COMMENT NO (NO)
[2017-01-05 14:17] LABS: URINE AMPHETAMINES < 1000 (1000ng/ml); URINE BARBITURATES < 200 (200ng/ml); URINE COCAINE < 300 (300ng/ml)
[2017-01-05 14:32] LABS: ALBUMIN 2.9 gm/dl (3.1-4.5); ALKALINE PHOSPHATASE 69 U/L (45-117); BILIRUBIN, TOTAL 0.3 mg/dl (0.2-1.0); BUN 22 mg/dl (7-24); CARBON DIOXIDE 39 mmol/L (21-32); CHLORIDE 100 mmol/L (98-107); EST GLOM FILT AFRICAN AMERICAN > 60 ml/min; GLUCOSE 78 mg/dL (65-99); MAGNESIUM 1.9 mg/dL (1.5-2.1); POTASSIUM 4.5 mmol/L (3.5-5.1); SGOT/AST 15 IU/L (3-35); SGPT/ALT 16 U/L (12-78); SODIUM 143 mmol/L (136-145); TOTAL PROTEIN 5.6 gm/dL (6.4-8.2)
[2017-01-05 14:39] LABS: TROPONIN I 0.054 ng/ml (<0.045)
[2017-01-05 15:19] LABS: INTERNATIONAL NORM RATIO 0.9 (2.0-3.5); PROTHROMBIN TIME 9.7 SECONDS (8.9-12.2)
[2017-01-05 15:30] VITALS: BP 170/67
[2017-01-05 15:45] VITALS: BP 152/56
[2017-01-05 16:19] LABS: ABG BASE EXCESS 8.9 mmol/L (-2.0-2.0); ABG CO2 CONTENT 37.7 mmol/L (23-27); ABG HCO3 35.6 mmol/l (22-26); ABG TEMPERATURE 99.4 F (98.0-99.0); ARTERIAL BLOOD GAS PH 7.347 (7.35-7.45)
[2017-01-05] MEDS ORDERED: CALCIUM +D & M1 EACH PO (16:43)
[2017-01-05] MEDS ORDERED: SIMVASTATIN40 MG PO (16:43)
[2017-01-05] MEDS ORDERED: FOSAMAX70 M1 PO (16:47)
[2017-01-05] MEDS ORDERED: PREDNISONE20 M1 PO (16:57)
[2017-01-05 20:00] VITALS: BP 98/76
[2017-01-06] VITALS: BP 160/70
[2017-01-06 04:00] VITALS: BP 175/58
[2017-01-06 06:01] LABS: HEMATOCRIT 30.5 % (37.0-47.0); HEMOGLOBIN 9.1 g/dl (12.0-16.0); LYMPH # 1.1 10*3/uL (1.3-4.4); LYMPH % 12.2 % (27.0-41.0); MEAN CORPUSCULAR HGB 29.2 pg (27.0-31.0); MEAN CORPUSCULAR HGB CONC 29.8 g/dl (33.0-37.0); MEAN PLATELET VOLUME 9.5 fl (9.6-12.3); MONO # 0.5 10*3/uL (0.1-1.0); MONO % 5.6 % (3.0-9.0); NEUT # 7.6 10*3/uL (2.3-7.9); NEUT % 81.8 % (47.0-73.0); PLATELET COUNT AUTOMATED 320 10*3/uL (130-400); RED BLOOD COUNT 3.12 10*6/uL (4.10-5.10); RED CELL DISTRI WIDTH 14.9 % (0-14.5); WHITE BLOOD COUNT 9.3 10*3/uL (4.8-10.8)
[2017-01-06 06:09] LABS: PROTHROMBIN TIME 10.1 SECONDS (9.0-12.4)
[2017-01-06 06:12] LABS: ALBUMIN 2.9 gm/dl (3.1-4.5); BILIRUBIN, TOTAL 0.4 mg/dl (0.2-1.0); BUN 17 mg/dl (7-24); CARBON DIOXIDE 37 mmol/L (21-32); CHLORIDE 100 mmol/L (98-107); CHOLESTEROL 236 mg/dL (<200); EST GLOM FILT AFRICAN AMERICAN > 60 ml/min; GLUCOSE 85 mg/dL (65-99); MAGNESIUM 1.7 mg/dL (1.5-2.1); PHOSPHOROUS 1.9 mg/dL (2.5-4.9); POTASSIUM 4.2 mmol/L (3.5-5.1); SGOT/AST 18 IU/L (3-35); SGPT/ALT 20 U/L (12-78); SODIUM 141 mmol/L (136-145); TOTAL PROTEIN 5.7 gm/dL (6.4-8.2); TRIGLYCERIDES 120 mg/dl (<150); VLDL CHOLESTEROL 24 mg/dL (6-40)
[2017-01-06 06:16] LABS: ALKALINE PHOSPHATASE 71 U/L (45-117); HDL CHOLESTEROL 68 mg/dl (40-60); LDL CHOLESTEROL 144 mg/dL (9-159)
[2017-01-06 06:29] LABS: MEAN CELL VOLUME 97.8 fl (81.0-99.0)
[2017-01-06 08:00] VITALS: BP 172/73
[2017-01-06 08:01] LABS: HEMOGLOBIN A1c 5.6 % (4.8-5.6)
[2017-01-06 08:32] LABS: FOLIC ACID 20.48 ng/mL (>5.38)
[2017-01-06 09:09] LABS: ABG BASE EXCESS 6.1 mmol/L (-2.0-2.0); ABG CO2 CONTENT 31.9 mmol/L (23-27); ABG HCO3 30.5 mmol/l (22-26); ABG TEMPERATURE 98.7 F (98.0-99.0); ARTERIAL BLOOD GAS PH 7.442 (7.35-7.45); ARTERIAL BLOOD GAS PO2 76.6 mmHg (80-90)
[2017-01-06 12:00] VITALS: BP 177/68
[2017-01-06 16:00] VITALS: BP 177/73
[2017-01-06 20:00] VITALS: BP 165/59
[2017-01-07] VITALS (7 sets, daily range): BP systolic 144–189; BP diastolic 52–78
[2017-01-07 08:42] LABS: HEMOGLOBIN 9.1 g/dl (12.0-16.0); MEAN CELL VOLUME 96.8 fl (81.0-99.0); MEAN CORPUSCULAR HGB 29.4 pg (27.0-31.0); MEAN CORPUSCULAR HGB CONC 30.3 g/dl (33.0-37.0); MEAN PLATELET VOLUME 9.4 fl (9.6-12.3); PLATELET COUNT AUTOMATED 308 10*3/uL (130-400); RED CELL DISTRI WIDTH 15.5 % (0-14.5); WHITE BLOOD COUNT 12.9 10*3/uL (4.8-10.8)
[2017-01-07 08:58] LABS: ALBUMIN 2.9 gm/dl (3.1-4.5); ALKALINE PHOSPHATASE 64 U/L (45-117); BILIRUBIN, TOTAL 0.4 mg/dl (0.2-1.0); BUN 12 mg/dl (7-24); CARBON DIOXIDE 32 mmol/L (21-32); CHLORIDE 104 mmol/L (98-107); EST GLOM FILT AFRICAN AMERICAN > 60 ml/min; GLUCOSE 85 mg/dL (65-99); SGOT/AST 20 IU/L (3-35); SGPT/ALT 22 U/L (12-78); SODIUM 142 mmol/L (136-145); TOTAL PROTEIN 5.4 gm/dL (6.4-8.2)
[2017-01-07 09:32] LABS: LYMPHOCYTE # 0.5 10*3/uL (1.3-4.4); MONOCYTE # 0.3 10*3/uL (0.1-1.0); NEUTROPHIL # 12.1 10*3/uL (2.3-7.9); NEUTROPHILS 94 % (47-73); PLATELET SUFFICIENCY NORMAL (NORMAL); TOTAL CELLS COUNTED 100 #CELLS
[2017-01-08] VITALS: BP 152/54
[2017-01-08 04:00] VITALS: BP 145/51
[2017-01-08 08:00] VITALS: BP 173/67
[2017-01-08 12:00] VITALS: BP 166/64
[2017-01-08 16:00] VITALS: BP 102/48
[2017-01-08 20:00] VITALS: BP 100/58
[2017-01-09] VITALS (7 sets, daily range): BP systolic 128–164; BP diastolic 47–80
[2017-01-09 08:51] LABS: EOS % 0.1 % (1.0-4.0); HEMATOCRIT 27.8 % (37.0-47.0); HEMOGLOBIN 8.6 g/dl (12.0-16.0); IG # 0.1 10*3/uL (0.0-0.1); LYMPH # 1.5 10*3/uL (1.3-4.4); LYMPH % 20.3 % (27.0-41.0); MEAN CELL VOLUME 96.2 fl (81.0-99.0); MEAN CORPUSCULAR HGB 29.8 pg (27.0-31.0); MEAN CORPUSCULAR HGB CONC 30.9 g/dl (33.0-37.0); MEAN PLATELET VOLUME 9.6 fl (9.6-12.3); MONO # 0.6 10*3/uL (0.1-1.0); MONO % 7.9 % (3.0-9.0); NEUT # 5.3 10*3/uL (2.3-7.9); NEUT % 70.4 % (47.0-73.0); PLATELET COUNT AUTOMATED 291 10*3/uL (130-400); RED BLOOD COUNT 2.89 10*6/uL (4.10-5.10); RED CELL DISTRI WIDTH 15.9 % (0-14.5); WHITE BLOOD COUNT 7.5 10*3/uL (4.8-10.8)
[2017-01-09 09:08] LABS: CHLORIDE 112 mmol/L (98-107); POTASSIUM 3.5 mmol/L (3.5-5.1); SODIUM 147 mmol/L (136-145)
[2017-01-09 09:20] LABS: ALBUMIN 2.5 gm/dl (3.1-4.5); ALKALINE PHOSPHATASE 54 U/L (45-117); BILIRUBIN, TOTAL 0.3 mg/dl (0.2-1.0); BUN 14 mg/dl (7-24); CARBON DIOXIDE 27 mmol/L (21-32); EST GLOM FILT AFRICAN AMERICAN > 60 ml/min; GLUCOSE 71 mg/dL (65-99); SGOT/AST 17 IU/L (3-35); SGPT/ALT 20 U/L (12-78); TOTAL PROTEIN 4.9 gm/dL (6.4-8.2)
[2017-01-10] VITALS: BP 160/60
[2017-01-10 03:59] VITALS: BP 180/80
[2017-01-10 04:49] VITALS: BP 124/54
[2017-01-10 07:07] LABS: BASO % 0.1 % (0.0-1.0); EOS % 0.2 % (1.0-4.0); HEMATOCRIT 28.8 % (37.0-47.0); HEMOGLOBIN 8.7 g/dl (12.0-16.0); IG # 0.2 10*3/uL (0.0-0.1); LYMPH # 1.7 10*3/uL (1.3-4.4); MEAN CORPUSCULAR HGB 29.3 pg (27.0-31.0); MEAN CORPUSCULAR HGB CONC 30.2 g/dl (33.0-37.0); MEAN PLATELET VOLUME 9.4 fl (9.6-12.3); MONO # 0.6 10*3/uL (0.1-1.0); MONO % 6.3 % (3.0-9.0); NEUT # 7.5 10*3/uL (2.3-7.9); NEUT % 74.9 % (47.0-73.0); PLATELET COUNT AUTOMATED 297 10*3/uL (130-400); RED BLOOD COUNT 2.97 10*6/uL (4.10-5.10); RED CELL DISTRI WIDTH 15.9 % (0-14.5); WHITE BLOOD COUNT 10.1 10*3/uL (4.8-10.8)
[2017-01-10 07:20] LABS: BUN 12 mg/dl (7-24); CARBON DIOXIDE 32 mmol/L (21-32); CHLORIDE 108 mmol/L (98-107); EST GLOM FILT AFRICAN AMERICAN > 60 ml/min; GLUCOSE 81 mg/dL (65-99); POTASSIUM 3.3 mmol/L (3.5-5.1); SODIUM 145 mmol/L (136-145)
[2017-01-10 08:00] VITALS: BP 140/56
[2017-01-10 12:00] VITALS: BP 145/56
[2017-01-10] MEDS ORDERED: CLOPIDOGREL75 MG PO (12:13)
[2017-01-10] MEDS ORDERED: TOPROL XL50 M1 PO (12:13)
[2017-01-10] MEDS ORDERED: IMDUR SA30 MG PO (12:13)
[2017-01-10] MEDS ORDERED: ASPIRIN CHEWABL81 M1 PO (12:13)
== END 2017-01-10 12:13 | disposition home or self-care (01) | DRG 871 ==
LOC: ED 12:41 → EDHOLD 14:56 → ICCU 14:56 → 5E 01-09 12:02
PROVIDERS: Hospitalist; Internal Medicine; Internal Medicine Critical Care Medicine; Internal Medicine Hospice and Palliative Medicine; Nurse Practitioner Family
PROC: 5A09457 Assistance with Respiratory Ventilation, 24-96 Consecutive Hours, Continuous Positive Airway Pressure (ICD-10-PCS; principal; 2017-01-06)
DX: A41.9 Sepsis, unspecified organism (principal); J96.21 Acute and chronic respiratory failure with hypoxia; E87.0 Hyperosmolality and hypernatremia; J96.22 Acute and chronic respiratory failure with hypercapnia; E44.0 Moderate protein-calorie malnutrition; J44.1 Chronic obstructive pulmonary disease with (acute) exacerbation; E11.65 Type 2 diabetes mellitus with hyperglycemia; I10 Essential (primary) hypertension; K21.9 Gastro-esophageal reflux disease without esophagitis; M47.816 Spondylosis without myelopathy or radiculopathy, lumbar region; E78.00 Pure hypercholesterolemia, unspecified; F41.9 Anxiety disorder, unspecified; E87.6 Hypokalemia; D64.9 Anemia, unspecified; E83.39 Other disorders of phosphorus metabolism; Z90.710 Acquired absence of both cervix and uterus; Z98.51 Tubal ligation status; Z87.891 Personal history of nicotine dependence; Z82.49 Family history of ischemic heart disease and other diseases of the circulatory system; Z83.3 Family history of diabetes mellitus; Z88.0 Allergy status to penicillin; Z88.1 Allergy status to other antibiotic agents; T40.601A Poisoning by unspecified narcotics, accidental (unintentional), initial encounter; T42.4X1A Poisoning by benzodiazepines, accidental (unintentional), initial encounter; Y92.89 Other specified places as the place of occurrence of the external cause

== ENCOUNTER 2017-01-11 19:04 | Inpatient (IN) | payer OTHER ==
[~2017-01-11] VITALS: Ht 152.4 cm; Wt 49.4 kg
--- NOTE | ~2017-01-11 | PR ---
[place], [place] PROGRESS NOTE NAME: LUIS GASPAR UNIT #: [id number] ROOM: 506 DOCTOR: DEBBIE RHODES MD,FLAVIA BIRTHDATE: [birth year] DOS: 01/23/2017 PULMONARY PROGRESS NOTE SUBJECTIVE: She has been comfortably resting on the bed. She has been currently using the BiPAP as advised. Does not have any acute new respiratory complaints at this time. Discharge planning was noted in progress. OBJECTIVE: VITAL SIGNS: Normal temperature, respiratory rate of 17, heart rate of 57, blood pressure 122/56. HEENT: Showed no new change. NECK: Supple. CARDIOVASCULAR: S1, S2 audible. LUNGS: Noted without any wheeze or crackles, the lungs were noted clear bilaterally. ABDOMEN: Soft, nontender. LABORATORY DATA: CBC shows mild anemia. The BMP was noted with sodium 135, CO2 of 39. IMPRESSION: The patient with resolving metabolic alkalosis with improving acute on chronic hypercapnic and hypoxic respiratory failure and exacerbation of chronic obstructive pulmonary disease. PLAN OF TREATMENT: Arrangement for this patient for noninvasive ventilation for the home settings has been already done through the [employer]. The patient will receive that upon discharge. In the meantime, continue other previous treatment, plan of management as in progress. Usual care. FLAVIA LEWIS MD CM:PNTRANS [phone] 1 FLAVIA RHODES MD 01/24/17211 interface
--- NOTE | ~2017-01-11 | PR ---
[place], [place] PROGRESS NOTE NAME: LUIS GASPAR UNIT #: [id number] ROOM: 506 DOCTOR: DEBBIE RHODES MD,FLAVIA BIRTHDATE: [birth year] DOS: 01/20/2017 PULMONARY PROGRESS NOTE SUBJECTIVE: She has been doing well at this time, noted awake and alert. Refusing the BiPAP that patient used intermittently. The code status of the patient determined to be DNR-CC arrest. OBJECTIVE: VITAL SIGNS: Showed normal temperature, respiratory rate 18, heart rate 66, blood pressure 152/56. HEENT: Showed no new change. NECK: Supple. CARDIOVASCULAR: S1, S2 audible. LUNGS: Noted with moderate decreased breath sounds without any wheezing or crackles. ABDOMEN: Soft, nontender. LABORATORY DATA: CBC of this morning was noted as mild anemia, otherwise normal CBC. CMP this morning of the patient noted normal BUN and creatinine. Carbon dioxide elevated at 47. Total protein of 4.8, albumin 2.3. IMPRESSION: 1. Resolving acute on chronic hypercapnic hypoxic respiratory failure with exacerbation of chronic obstructive pulmonary disease. 2. Severe metabolic alkalosis secondary to hypercarbia. 3. Generalized debility and other problems. PLAN OF TREATMENT: Use of the Diamox to help improve the metabolic alkalosis. The patient was encouraged to use the BiPAP. She refused to be admitted to the fdc facility. Continue the other previous treatment plan and management. Usual care. Other supportive therapy, plan of care. FLAVIA LEWIS MD CM:PNTRANS [phone] [id number] FLAVIA RHODES MD 01/20/172124 interface
--- NOTE | ~2017-01-11 | PR ---
[place], [place] PROGRESS NOTE NAME: LUIS GASPAR UNIT #: [id number] ROOM: 506 DOCTOR: FLAVIA ELDRIDGE MD BIRTHDATE: [birth year] DOS: 01/15/2017 SUBJECTIVE: She has been noted stable at this time. Denies acute shortness of breath, coughing, sputum expectoration, chest pain. Noted with edema of the right forearm for this patient with PICC line in place. Denies any pain in the extremity. Respiratory symptoms have been noted gradual reduction. OBJECTIVE: VITAL SIGNS: Normal temperature, respiratory rate 24, heart rate of 63, blood pressure 150/58. Pulse oxygen saturation of the patient on 3.5 L nasal cannula 100% saturation. HEENT: Examination shows no acute change. NECK: Supple. CARDIOVASCULAR: S1, S2 is audible. LUNGS: The patient was noted without any wheeze or crackles. ABDOMEN: Soft, nontender. EXTREMITIES: Right upper extremity shows moderate edema where the PICC line has been inserted. LABORATORY DATA: CBC today: WBC count 12.7, hemoglobin 10.4, hematocrit 33.7, platelet count was 469,000. BMP this morning, BUN 12, creatinine was normal. Potassium was 3.4. Vancomycin trough level 11.4. IMPRESSION: 1. The patient with chronic fracture for the patient of the spine. Currently, PICC line in place with possibility of decreased flow for this patient's venous of the right upper extremity with PICC line insertion or rule out deep venous thrombosis. 2. Chronic obstructive pulmonary disease. PLAN OF TREATMENT: Order the ultrasound of the right upper extremity to rule out deep venous thrombosis. The PICC line may need to be changed to the other extremity if the swelling persists with negative deep venous thrombosis. Other supportive plan of management. Usual care. Supportive plan and management and care. [place], [place] PROGRESS NOTE NAME: LUIS GASPAR UNIT #: [id number] ROOM: 506 DOCTOR: FLAVIA ELDRIDGE MD BIRTHDATE: [birth year] FLAVIA LEWIS MD CM:PNTRANS [id number] FLAVIA RHODES MD 01/15/17 1222 interface
--- NOTE | ~2017-01-11 | PR ---
[place], [place] PROGRESS NOTE NAME: LUIS GASPAR UNIT #: [id number] ROOM: 506 DOCTOR: JOAO MONTELONGO DO BIRTHDATE: [birth year] DOS: 01/20/2017 SUBJECTIVE: The patient was seen and evaluated on 01/20/2017. At this time, she has no new complaints. She continues to use the BiPAP intermittently. Overall, she is feeling better; however, she is not breathing at baseline. She continues to complain of her chronic back pain from her known compression fractures. She has no other acute complaints at this time. OBJECTIVE: VITAL SIGNS: Temperature 98.2, pulse 66, respirations 18, blood pressure 152/56, pulse ox 100%. GENERAL: The patient is awake. She is currently on BiPAP and appears in no acute distress. LUNGS: Diminished bilaterally, but clear. HEART: Regular rate and rhythm. ABDOMEN: Soft, nontender, nondistended. EXTREMITIES: No edema. ASSESSMENT: 1. Sepsis. This is resolving. 2. Pneumonia. 3. Urinary tract infection with culture positive for an ESBL Escherichia coli on 01/11/2017. 4. Acute on chronic respiratory failure. 5. Metabolic encephalopathy. This is resolving. 6. Chronic obstructive pulmonary disease. 7. Chronic immunosuppression secondary to prednisone treatment. 8. Diabetes mellitus type 2. 9. Hypertension. 10. Hyperlipidemia. 11. Gastroesophageal reflux disease. 12. History of compression fractures and recent kyphoplasty in 11/2016. 13. History of tobacco abuse. PLAN: Continue current treatment. Dr. Swenson is following on the case. We are still waiting for insurance approval for equipment to be used at home. [place], [place] PROGRESS NOTE NAME: LUIS GASPAR UNIT #: [id number] ROOM: 506 DOCTOR: JOAO MONTELONGO DO BIRTHDATE: [birth year] JOAO MONTELONGO DO CM:PNTRANS [id number] JOAO MONTELONGO DO 01/20/17 1623 interface
--- NOTE | ~2017-01-11 | PR ---
[place], [place] PROGRESS NOTE NAME: LUIS GASPAR UNIT #: [id number] ROOM: 506 DOCTOR: DEBBIE RHODES MD,FLAVIA BIRTHDATE: [birth year] DOS: ADDENDUM The patient has been treated in this hospital at this time and has been noted with recurrent hospitalization for acute on chronic hypercapnia hypoxic respiratory failure. The patient has been noted with severe COPD and frequent exacerbations. The patient will require treatment with a home ventilator. The home ventilator treatment is necessary to prevent the recurrent exacerbation and reduce the readmission as well as improve the quality of life for this patient. The prescription has been sent to the [facility] for the patient making arrangements prior to discharge for this patient with home ventilator unit after authorization from the insurance. FLAVIA LEWIS MD CM:PNTRANS [id number] FLAVIA RHODES MD 01/17/17 0919 interface
--- NOTE | ~2017-01-11 | PR ---
[place], [place] PROGRESS NOTE NAME: [facility]PAR [id number] UNIT #: [id number] ROOM: 506 DOCTOR: DEBBIE RHODES MD,FLAVIA BIRTHDATE: [birth year] DOS: 01/14/2017 PULMONARY FOLLOWUP NOTE SUBJECTIVE: She has been noted comfortable at this time using the BiPAP as ordered. The patient has not been noted with any symptoms of chest pain or any abdominal pain. OBJECTIVE: VITAL SIGNS: For the patient, which has been recorded showed the temperature of the patient was noted as normal. The respiratory rate of the patient recorded as 22, heart rate 71, blood pressure 150/96. Pulse oxygen saturation of the patient recorded on 4 liters nasal cannula 99%-100% saturation. HEENT: Examination shows head was atraumatic. Eyes: Nonicterus. NECK: Supple. CARDIOVASCULAR: S1, S2 audible. LUNGS: The patient noted without any wheezing or crackles. Breaths are noted generally diminished bilaterally. ABDOMEN: Soft, nontender. IMPRESSION: 1. The patient who has been currently noted with acute hypercapnic and hypoxic respiratory failure. 2. Chronic pain of the chest with multilevel compression fracture. 3. Recent kyphoplasty of the thoracic vertebral bone as well. 4. Overall debility as well. PLAN OF TREATMENT: No changes in the plan and management at this time will be needed. Other previous treatment as in progress will be continued without any changes. Further treatment changes will be done based on the progression of the illness. FLAVIA LEWIS MD CM:PNTRANS [phone] FLAVIA RHODES MD 01/14/17 2307 interface
--- NOTE | ~2017-01-11 | PR ---
[place], [place] PROGRESS NOTE NAME: LUIS GASPAR UNIT #: [id number] ROOM: 506 DOCTOR: DEBBIE RHODES MD,FLAVIA BIRTHDATE: [birth year] DOS: 01/17/2017 PULMONARY PROGRESS NOTE SUBJECTIVE: The patient was seen and examined on 01/17/2017. She has been currently using BiPAP, has refused to use the BiPAP for the past 2 nights consecutively. The patient was assessed with arterial blood gas with change in mental status and noted worsening of the hypercarbia. She has been started on the BiPAP, which has been used by the patient this morning as she was seen. She was noted to be awake and alert, follows vocal commands. OBJECTIVE: VITAL SIGNS: Shows a normal temperature, respiratory rate 20, heart rate of 78, blood pressure 136/46 to 152/62. Pulse oxygen saturation on 3 liters nasal cannula was 100% saturation, on the BiPAP was 99% to 100% saturation as well. HEENT: No acute change. NECK: Supple. CARDIOVASCULAR: S1, S2 audible. LUNGS: Noted with general reduction in breath sounds bilaterally without any wheezing or crackles. ABDOMEN: Soft, nontender. LABORATORY DATA: Urine for Legionella antigen and the streptococcal antigen were noted as negative. Vancomycin trough level noted as 26.3, which was noted above the therapeutic range. Arterial blood gas this morning, pH of 7.28, pCO2 of 89, pO2 of 151. IMPRESSION: 1. The patient with advanced centrilobular emphysema with currently noted acute on chronic hypercapnic hypoxic respiratory failure, responding to the treatment with the use of the BiPAP. 2. Metabolic alkalosis noted with a CO2 level elevated as 43 on today's BMP. The BUN and creatinine were noted normal. PLAN OF TREATMENT: The patient is currently using the BiPAP most of the time to improve the current acute on chronic hypercapnic and hypoxemic respiratory failure. Code status has been discussed with the patient and she was considering to have the code status of DNR comfort, no resuscitation and intubation to be done. The case was discussed with one of the patient's daughter as well on the phone. They will make a collective decision for this patient since the patient has designated power of deputy county attorney, one of her sisters about that. The patient was also recommended possibility of placement in the [facility] facility for continued medical management. The patient refuses to do so with the consideration for the hospitalist services should be done as well. This has been all discussed with one of the patient's daughters. She will be managed for the continuation of the medical treatment for the hypercarbia with addition of the Diamox to the treatment. [place], [place] PROGRESS NOTE NAME: LUIS GASPAR UNIT #: [id number] ROOM: 506 DOCTOR: FLAVIA ELDRIDGE MD BIRTHDATE: [birth year] FLAVIA LEWIS MD CM:PNTRANS [id number] FLAVIA RHODES MD 01/19/17 0563 interface
--- NOTE | ~2017-01-11 | PR ---
[place], [place] PROGRESS NOTE NAME: LUIS GASPAR UNIT #: [id number] ROOM: 506 DOCTOR: FLAVIA ELDRIDGE MD BIRTHDATE: [birth year] DOS: 01/13/2017 SUBJECTIVE: The patient was seen and examined on 01/13/2017. She has been noted reduction of the respiratory symptom at the present time. She has in the BiPAP as well. Denies symptoms of chest pain or any abdominal pain. Shortness of breath has been noted intermittently. OBJECTIVE: VITAL SIGNS: For the patient, which has been recorded showed normal temperature, respiratory rate 22, heart rate 76, blood pressure 180/60-149/85. The pulse oxygen saturation of the patient recorded with the BiPAP, which has been used by the patient at this time, 35% oxygen 100% saturation. HEENT: Examination shows chronic obesity. NECK: Supple. CARDIOVASCULAR: S1, S2 audible. LUNGS: The patient was noted with gatb-uh-euzaujqw decreased breath sounds were noted in the lungs bilaterally. ABDOMEN: Soft, nontender. LABORATORY DATA: Arterial blood gas yesterday shows pH of 7.26, pCO2 of 67, pO2 of 155. At that time, the oxygen supplementation noted 45%. The urine culture of the patient shows heavy growth of Gram-negative bacilli. Blood cultures 2 sets for this patient on 01/11/2017 were noted without any bacterial growth. Chest x-ray which were repeated one view this morning for the patient shows small pleural fluids were noted with reduction of previous noted infiltration. IMPRESSION: 1. Small pleural fluid with associated acute pneumonia from aspiration with acute on chronic hypercapnic and hypoxic respiratory failure. 2. Chronic chest pain, which has been still noted persistent at this time and treated with pain medications. PLAN OF TREATMENT: Continue the BiPAP, oxygen supplementation. Assessment for possible home noninvasive ventilation for the patient will be ordered from the [employer]. The patient might needs to be transferred to the prison facility as well. Other supportive therapy, plan of management and care. [place], [place] PROGRESS NOTE NAME: LUIS GASPAR UNIT #: [id number] ROOM: 506 DOCTOR: FLAVIA ELDRIDGE MD BIRTHDATE: [birth year] FLAVIA LEWIS MD CM:PNTRANS [id number] FLAVIA RHODES MD 01/14/1752 interface
--- NOTE | ~2017-01-11 | CON ---
[place], [place] REPORT OF CONSULTATION NAME: LUIS GASPAR UNIT #: [id number] ROOM: 506 DOCTOR: DEBBIE RHODES MDFLAVIA BIRTHDATE: [birth year] DOS: 01/12/2017 PULMONARY CONSULTATION EVALUATION AND MANAGEMENT REASON FOR CONSULTATION: Assess the patient for acute respiratory failure. HISTORY OF PRESENT ILLNESS: This is a 71 years old white female who had been admitted to the hospital and was noted with acute severe hypercapnic respiratory failure with chronic hypercapnia. The patient has been noted potential drug overdose for the patient with her pain medications. The patient has been treated with a BiPAP as well as other intervention of the patient. The patient has shown improvement in the respiratory status and was noted fully awake and alert without any distress and discharged to the home setting. The patient went home and was doing well until the next day for the patient in the morning as the patient took her pain medications, but did not eat the breakfast. She was found to be unresponsive later on. She has been brought back to the hospital because of increased lethargy and hypoxia which was witnessed by the daughters. The patient's oxygen supplementation was increased to 5 liters nasal cannula with improvement in the oxygenation; however, the lethargy and the unresponsive of the patient was not noted to be resolved. She was assessed in the Emergency Room was noted with the recurrence of acute hypercapnic with chronic hypercapnic respiratory failure and hypoxemia. The patient has been admitted to the hospital. The patient was started on the BiPAP the patient since yesterday. This morning the patient was noticed she has been noted awake and alert at this time stating that she is not feeling well, but has been using the BiPAP as ordered. The patient has not been reported with any symptoms of chest pain or any coughing at the present time. The pain in the chest, which has been noted previously with multilevel compression fracture of the patient has been noted stable. She denies any symptoms of wheezing. REVIEW OF SYSTEMS: CONSTITUTIONAL SYMPTOMS: She does complain of fatigue and tiredness. EYES: Denies any burning, redness, or tenderness. EARS, NOSE, THROAT SYMPTOMS: No sore throat, hoarseness, otalgia, postnasal drainage. CARDIOVASCULAR SYSTEM: Denies anginal pain, edema or pain of the lower extremities. GASTROINTESTINAL SYMPTOMS: Denies dysphagia, nausea, vomiting, diarrhea, abdominal pain, hematemesis, melena. MUSCULOSKELETAL SYMPTOMS: Chronic pain in the chest of the patient seemed to be stable without any further worsening as previously known. SKIN: Denies lesions or rashes. The patient was noted with chronic bruising of the skin secondary to prednisone use. CENTRAL NERVOUS SYSTEM: Denies dizziness, headache, diplopia, syncopal episode. GENITOURINARY SYMPTOMS: Denies dysuria, suprapubic pain, hematuria. Remaining systems were reviewed with the patient, they were noted all negative. PAST MEDICAL HISTORY: Noted. 1. Severe centrilobular emphysema. 2. Chronic hypercapnic hypoxic respiratory failure, use of oxygen, usually 2 [place], [place] REPORT OF CONSULTATION NAME: LUIS GASPAR UNIT #: [id number] ROOM: [facility] DOCTOR: FLAVIA ELDRIDGE MD BIRTHDATE: [birth year] liters nasal cannula. 3. Chronic prednisone use 10 mg daily. 4. History of diverticulosis. 5. Spastic colon. 6. Coronary artery disease suspected non-ST segment elevation myocardial infarction December 2016 on admission. 7. History of past nicotine dependence. 8. Type 2 diabetes mellitus. 9. Gastroesophageal reflux disease. 10. Essential hypertension. 11. MATILDA infection of the patient of the lung. The patient intolerant to all of the medications primarily used for management and currently, the patient not on any treatment. 12. Multilevel compression fracture of the spine for the patient with the kyphoplasty of T10 and 12 in November 2016. PAST SURGICAL HISTORY: 1. Complete hysterectomy. 2. Tubal ligation. 3. Left carotid endarterectomy. 4. Therapeutic bronchoscopy in the past. Last bronchoscopy in October 2016. 5. Left malleolar fracture. 6. Vertebroplasty of T10 and T12 vertebral bone. SOCIAL HISTORY: The patient is , has 4 children. Denies history of alcohol use. Tobacco use noted since age of [age] years old, pack of cigarettes per day that has been decreased and discontinued I believe at this time. Denies any history of illicit drug use or any alcohol dependence. FAMILY HISTORY: Mother at 72 years old complications of cancer of the colon. Father at age of 5050 years old, complication of cancer of the lung. DRUG ALLERGY HISTORY: NOTED ZITHROMAX, LEVAQUIN, ETHAMBUTOL, AND RIFAMPIN. PHYSICAL EXAMINATION: GENERAL: A 71-year-old female who has been noted currently awake and alert on the BiPAP, height of 5 feet 4 inches, weight of 107 pounds, BMI 20.0. VITAL SIGNS: Normal temperature, respiratory rate 20-24, heart rate of 90-81, blood pressure 156/80-129/91. The pulse oxygen saturation of the patient recorded on BiPAP was 98% saturation. HEENT: Examination shows head was atraumatic. Eyes nonicterus. CARDIOVASCULAR SYSTEM: S1, S2 audible. LUNGS: The patient was noted with moderate decreased breath sounds in the lungs without any wheezing or crackles. ABDOMEN: Soft, nontender and flat. EXTREMITIES: Shows no edema, clubbing or cyanosis. CENTRAL NERVOUS SYSTEM: Limited examination. Cranial nerves 2-12 intact. No focal deficits. SKIN: No acute lesions or rashes with chronic bruising of the skin the patient's upper and lower extremities for the patient was noted secondary to [place], [place] REPORT OF CONSULTATION NAME: LUIS GASPAR UNIT #: [id number] ROOM: [facility] DOCTOR: KATHERYN ELDRIDGE MDM BIRTHDATE: [birth year] prednisone dependency. MUSCULOSKELETAL SYMPTOMS: No obvious deformities. LABORATORY DATA: Arterial blood gas of the patient that was done this morning shows pH of 7.32, pCO2 of 65, pO2 of 117 on 5 liters nasal cannula of oxygen. CBC: Hemoglobin 9.2, hematocrit , WBC count normal, platelet count were normal, 93% segmented neutrophils. CMP of the patient was noted with normal BUN and creatinine. CO2 35. The troponin mildly elevated at 0.58, the first set, second set of troponin 0.057. CK-MB was 6.1, mildly elevated. The last set of the patient's CK-MB troponin of the patient was noted with the normal troponin. The CK-MB was elevated minimally at 6.7. The CMP of the patient that was done this morning was noted as normal BUN and creatinine. The albumin was noted mildly decreased for the patient as 3.0 with normal total protein. The chest x-ray of the patient, which was done, one view, in the Emergency Room for the patient was noted as small pleural fluid for the patient was noted area of atelectasis, acute infiltration. IMPRESSION: 1. The patient who had been currently admitted to the hospital noted with leukocytosis with unresponsiveness, most likely related to the current acute pneumonia, possibly related to the acute aspiration would be considered. 2. The patient with chronic obstructive pulmonary disease as well with chronic hypercapnia, which has been noted stable at this time. 3. Acute hypoxic respiratory failure secondary to the acute pneumonia. The organism to be suspected as a gram-positive and gram-negative organism for the patient because of the recent hospitalization as healthcare-associated infection would be considered. 4. The patient with chronic pain for this patient of the thoracic spine, status post vertebroplasty T10 and T12 vertebral bone. PLAN OF TREATMENT: She is already been started on antibiotics that will be continued. Monitor leukocytosis of the patient as well. Repeat arterial blood gas of the patient to assess and further change the medical management of the patient for the BiPAP for this patient as necessary. Consider possible assessment of the patient discharged home setting for the patient with the noninvasive ventilator for the patient from the [employer]. Other supportive therapy, plan of management. Continue the pain management. Usual care. Order the sputum for Gram stain culture as well. Thanks for allowing me to participate in the care of this patient. [place], [place] REPORT OF CONSULTATION NAME: LUIS GASPAR UNIT #: [id number] ROOM: [facility] DOCTOR: FLAVIA ELDRIDGE MD BIRTHDATE: [birth year] FLAVIA LEWIS MD CM:CONSTR:REPORT OF CONSULTATION 1252 01/13/17 0057 interface
--- NOTE | ~2017-01-11 | PR ---
[place], [place] PROGRESS NOTE NAME: LUIS GASPAR UNIT #: [id number] ROOM: 506 DOCTOR: DEBBIE RHODES MD,FLAVIA BIRTHDATE: [birth year] DOS: 01/22/2017 SUBJECTIVE: The patient is seen and examined on 01/22/2017. She has been comfortably resting on the bed, using oxygen supplementation and also using the BiPAP as advised. She has not been noted any hemodynamic instability at the present time. OBJECTIVE: VITAL SIGNS: Shows normal temperature, respiratory rate 20, heart rate 71, and blood pressure 154/76. The pulse oxygen saturation recorded on nasal cannula of 3 liters at 96% saturation. HEENT: Examination shows no acute change. NECK: Supple. CARDIOVASCULAR: S1, S2 is audible. LUNGS: The patient was noted with ssql-gu-xibzrmgl decreased breath sounds bilaterally. ABDOMEN: Soft, nontender. LABORATORY DATA: CBC: WBC count 11.3, hemoglobin 9.9, hematocrit 32.8, platelet count were noted normal today. CMP this morning noted normal BUN and creatinine. Carbon dioxide noted at 39. IMPRESSION: The patient with improvement. The patient with mvfeo-[id number] hypercapnic hypoxic respiratory failure, exacerbation of chronic obstructive pulmonary disease and improving metabolic alkalosis as well. PLAN OF TREATMENT: Discharge the patient to home setting whenever desired with use of the home ____ ventilator has been already ordered. The patient will be continued on other previous treatment plan and management as in progress. Usual care, other supportive therapy, plan of care. Further treatment changes will be done based on the progression of the illness. FLAVIA LEWIS MD CM:PNTRANS [phone] FLAVIA RHODES MD 01/23/17 0634 interface
--- NOTE | ~2017-01-11 | PR ---
[place], [place] PROGRESS NOTE NAME: LUIS GASPAR UNIT #: [id number] ROOM: 506 DOCTOR: DEBBIE RHODES MD,FLAVIA BIRTHDATE: [birth year] DOS: 01/21/2017 She has been noted comfortable at this time. FLAVIA LEWIS MD CM:IOANA [phone] FLAVIA RHODES MD 01/21/17 2104 interface
--- NOTE | ~2017-01-11 | PR ---
[place], [place] PROGRESS NOTE [id number] UNIT #: [id number] ROOM: 506 DOCTOR: DEBBIE RHODES MD,FLAVIA BIRTHDATE: [birth year] DOS: 01/24/2017 SUBJECTIVE: The patient has been noted without any acute respiratory distress at this time. She has been using the BiPAP as advised. She was planned for possible discharge to home settings today. There were no symptoms of acute shortness of breath, coughing, chest pain, or wheezing. OBJECTIVE: VITAL SIGNS: For the patient, which had been recorded showed the temperature of the patient noted as normal. The respiratory rate of the patient recorded as 20, heart rate of 59, blood pressure 142/60, pulse oxygen saturation noted on 30% oxygen with BiPAP at 100% saturation. HEENT: Examination shows head was atraumatic. Eyes nonicterus. NECK: Supple. CARDIOVASCULAR: S1, S2 audible. LUNGS: The patient was noted without any wheezing or crackles at the present time. ABDOMEN: Soft and nontender. LABORATORY DATA: BMP of the patient that was done this morning was noted as CO2 of 37, remaining BMP normal. CBC of the patient noted mild anemia, and otherwise remains stable. IMPRESSION: 1. The patient's stable respiratory status was noted at the present time. 2. Ongoing metabolic alkalosis of the patient which has been resolving as well. PLAN OF TREATMENT: All the necessary equipment for the patient in the home setting was arranged for this patient as previously to use for the chronic hypercapnic hypoxic respiratory failure and recurrent hospitalization. The patient will be discharged to home today, to be followed up in the office settings in the next couple of weeks. FLAVIA LEWIS MD CM:PNTRANS [phone] FLAVIA RHODES MD 01/25/177 interface
--- NOTE | ~2017-01-11 | PR ---
[place], [place] PROGRESS NOTE NAME: LUIS GASPAR UNIT #: [id number] ROOM: 506 DOCTOR: FLAVIA ELDRIDGE MD BIRTHDATE: [birth year] DOS: 01/21/2017 PULMONARY FOLLOWUP SUBJECTIVE: She has been noted fully awake and alert. She denies symptoms of chest pain. Currently using the BiPAP. Denies any wheezing or cough. OBJECTIVE: VITAL SIGNS: Of the patient, which have been recorded showed normal temperature up to 99.5 degrees Fahrenheit, respiratory rate 18-16, heart rate 61-64, blood pressure 130/50-103/60. Intake is 1530, output 1400 mL. Pulse oxygen saturation for the patient recorded as 100% with 30% of BiPAP use. HEENT: Showed no new change. NECK: Supple. CARDIOVASCULAR: S1, S2 is audible. LUNGS: The patient was noted without any wheezing or crackles. ABDOMEN: Soft, nontender. LABORATORY DATA: BMP today the CO2 level was noted at 41, decreased from 47 yesterday. Potassium was noted normal with that. CBC this morning shows hemoglobin 9.8, hematocrit 32.2, normal WBC count and platelet count. Vancomycin trough level yesterday noted 14.4. IMPRESSION: 1. Resolving acute on chronic hypercapnic and hypoxic respiratory failure with exacerbation of chronic obstructive pulmonary disease. 2. Anemia of chronic disease. 3. Severe metabolic alkalosis which is resolving secondary to hypercarbia. PLAN OF TREATMENT: Reduce the dose of Diamox of this patient to b.i.d. dosing. Other previous treatment to be continued without any changes. Monitoring potassium levels for this patient with current use of Diamox. No additional supplementation of potassium will be needed. Continue use of the BiPAP as previously ordered. [place], [place] PROGRESS NOTE NAME: LUIS GASPAR UNIT #: [id number] ROOM: 506 DOCTOR: FLAVIA ELDRIDGE MD BIRTHDATE: [birth year] FLAVIA LEWIS MD CM:PNTRANS [id number] FLAVIA RHODES MD 01/21/17 1107 interface
--- NOTE | ~2017-01-11 | PN ---
[place], [place] PROGRESS NOTE NAME: LUIS GASPAR UNIT #: [id number] ROOM: 506 DOCTOR: FLAVIA ELDRIDGE MD BIRTHDATE: [birth year] DATE: 01/16/17 PULMONARY PROGRESS NOTE SUBJECTIVE: She has been noted sleepy at this time and drowsy. At this time, the patient has been using the oxygen supplementation. The BiPAP has been used by the patient intermittently. OBJECTIVE: VITAL SIGNS: Shows normal temperature, respiratory rate 22, heart rate 67 and blood pressure 154/54. Pulse oxygen saturation of the patient on 3 L nasal cannula was 99% saturation. HEENT: Examination showed no new change. NECK: Supple. CARDIOVASCULAR: S1, S2 audible. LUNGS: Noted with general reduction of the breath sounds bilaterally. ABDOMEN: Soft, nontender. LABORATORY DATA: CBC this morning was noted with mild anemia, otherwise platelet count mildly elevated at 406,000 and WBC count was normal. BMP of the patient was noted with normal BUN and creatinine. Potassium noted decreased at 3.2. Ultrasound of the right upper extremity of the patient was done that does not show evidence of deep venous thrombosis of right upper extremity. IMPRESSION: 1. Change in mental status, possibly due to acute hypercarbia, medication induced change in mental status will be considered. 2. The patient with chronic obstructive pulmonary disease. 3. Edema of the right upper extremity impairment because of the current PICC line without any evidence of deep venous thrombosis. 4. ____ debility and chronic pain. PLAN OF TREATMENT: Arterial blood gas of the patient has been ordered to be redone for assessment of ventilatory status. BiPAP needs to be used at nighttime for short ____ in the daytime. Other supportive therapy, plan of management. Supplementation of the hypokalemia for this patient to be done by the primary care attending. [place], [place] PROGRESS NOTE NAME: HEATHER GASPARLEY Ervin UNIT #: [id number] ROOM: 506 DOCTOR: FLAVIA ELDRIDGE MD BIRTHDATE: [birth year] FLAVIA ELDRIDGE MD CM:PNTRANS [phone] FLAVIA RHODES MD 01/20/17 1427 BRYON [email or web address]
[2017-01-11 19:04] VITALS: BP 185/76
[~2017-01-11 19:04] MED LIST changes: +ASPIRIN CHEWABL81 M1 PO; +CALCIUM +D & M1 EACH PO; +CLOPIDOGREL75 MG PO; +FOSAMAX70 M1 PO; +IMDUR SA30 MG PO; +NEURONTIN300 MG PO; +TOPROL XL50 M1 PO
[2017-01-11 19:43] LABS: HEMATOCRIT 30.2 % (37.0-47.0); HEMOGLOBIN 9.2 g/dl (12.0-16.0); MEAN CELL VOLUME 98.1 fl (81.0-99.0); MEAN CORPUSCULAR HGB 29.9 pg (27.0-31.0); MEAN CORPUSCULAR HGB CONC 30.5 g/dl (33.0-37.0); PLATELET COUNT AUTOMATED 341 10*3/uL (130-400); RED BLOOD COUNT 3.08 10*6/uL (4.10-5.10); RED CELL DISTRI WIDTH 15.8 % (0-14.5); WHITE BLOOD COUNT 9.9 10*3/uL (4.8-10.8)
[2017-01-11 19:45] LABS: BILIRUBIN NEGATIVE (NEGATIVE); BLOOD 1+ (NEGATIVE); CLARITY SL CLOUDY (CLEAR); COLOR YELLOW (YELLOW); GLUCOSE NEGATIVE (NEGATIVE); KETONE NEGATIVE (NEGATIVE); LEUKO ESTERASE NEGATIVE (NEGATIVE); NITRITE NEGATIVE (NEGATIVE); PROTEIN TRACE (NEGATIVE); SPECIFIC GRAVITY >= 1.030 (1.005-1.030); UROBILINOGEN 0.2 E.U./dl (0.2-1.0)
[2017-01-11 19:51] LABS: URINE AMPHETAMINES < 1000 (1000ng/ml); URINE BARBITURATES < 200 (200ng/ml); URINE COCAINE < 300 (300ng/ml)
[2017-01-11 19:52] VITALS: BP 116/80
[2017-01-11 19:58] LABS: BACTERIA 4+; URINE REFLEX COMMENT YES (NO)
[2017-01-11 20:05] LABS: LYMPHOCYTE # 0.6 10*3/uL (1.3-4.4); MONOCYTE # 0.1 10*3/uL (0.1-1.0); NEUTROPHIL # 9.2 10*3/uL (2.3-7.9); NEUTROPHILS 93 % (47-73); PLATELET SUFFICIENCY NORMAL (NORMAL); STOMATOCYTE FEW; TOTAL CELLS COUNTED 100 #CELLS
[2017-01-11 20:07] VITALS: BP 166/72
[2017-01-11 20:11] LABS: ABG BASE EXCESS 5.9 mmol/L (-2.0-2.0); ABG CO2 CONTENT 34.8 mmol/L (23-27); ABG HCO3 32.8 mmol/l (22-26); ARTERIAL BLOOD GAS PH 7.32 (7.35-7.45)
[2017-01-11 20:36] LABS: ALBUMIN 2.9 gm/dl (3.1-4.5); ALKALINE PHOSPHATASE 66 U/L (45-117); BILIRUBIN, TOTAL 0.3 mg/dl (0.2-1.0); BUN 14 mg/dl (7-24); CARBON DIOXIDE 35 mmol/L (21-32); CHLORIDE 103 mmol/L (98-107); EST GLOM FILT AFRICAN AMERICAN > 60 ml/min; GLUCOSE 94 mg/dL (65-99); SGOT/AST 26 IU/L (3-35); SGPT/ALT 39 U/L (12-78); SODIUM 147 mmol/L (136-145)
[2017-01-11 20:37] LABS: POTASSIUM 4.3 mmol/L (3.5-5.1)
[2017-01-11 20:39] LABS: TROPONIN I 0.058 ng/ml (<0.045)
[2017-01-11 20:42] LABS: TOTAL PROTEIN 5.4 gm/dL (6.4-8.2)
[2017-01-11 21:06] VITALS: BP 187/83
[2017-01-11 22:10] VITALS: BP 125/91
[2017-01-12] VITALS: BP 129/66
[2017-01-12 00:45] LABS: CKMB 6.1 ng/ml (0.5-3.6); TROPONIN I 0.057 ng/ml (<0.045)
[2017-01-12 06:19] LABS: HEMATOCRIT 33.1 % (37.0-47.0); HEMOGLOBIN 9.7 g/dl (12.0-16.0); MEAN CELL VOLUME 99.7 fl (81.0-99.0); MEAN CORPUSCULAR HGB 29.2 pg (27.0-31.0); MEAN CORPUSCULAR HGB CONC 29.3 g/dl (33.0-37.0); MEAN PLATELET VOLUME 9.6 fl (9.6-12.3); PLATELET COUNT AUTOMATED 422 10*3/uL (130-400); RED BLOOD COUNT 3.32 10*6/uL (4.10-5.10); RED CELL DISTRI WIDTH 15.7 % (0-14.5); WHITE BLOOD COUNT 21.4 10*3/uL (4.8-10.8)
[2017-01-12 06:32] LABS: BILIRUBIN, TOTAL 0.4 mg/dl (0.2-1.0); BUN 16 mg/dl (7-24); CARBON DIOXIDE 31 mmol/L (21-32); CHLORIDE 102 mmol/L (98-107); GLUCOSE 107 mg/dL (65-99); MAGNESIUM 1.8 mg/dL (1.5-2.1); POTASSIUM 4.2 mmol/L (3.5-5.1); SGOT/AST 32 IU/L (3-35); SGPT/ALT 51 U/L (12-78); SODIUM 143 mmol/L (136-145); TOTAL PROTEIN 6.1 gm/dL (6.4-8.2)
[2017-01-12 06:38] LABS: TROPONIN I 0.042 ng/ml (<0.045)
[2017-01-12 06:42] LABS: ALKALINE PHOSPHATASE 78 U/L (45-117); EST GLOM FILT AFRICAN AMERICAN > 60 ml/min
[2017-01-12 06:52] LABS: CKMB 6.7 ng/ml (0.5-3.6)
[2017-01-12 07:09] LABS: LYMPHOCYTE # 0.2 10*3/uL (1.3-4.4); NEUTROPHIL # 21.2 10*3/uL (2.3-7.9); NEUTROPHILS 99 % (47-73); PLATELET SUFFICIENCY HIGH (NORMAL); POLYCHROMASIA SLIGHT; TOTAL CELLS COUNTED 100 #CELLS
[2017-01-12 08:00] VITALS: BP 156/80
[2017-01-12 12:00] VITALS: BP 152/82
[2017-01-12 12:19] LABS: TROPONIN I 0.036 ng/ml (<0.045)
[2017-01-12 12:25] LABS: CKMB 7.4 ng/ml (0.5-3.6)
[2017-01-12 14:03] LABS: ABG BASE EXCESS 2.3 mmol/L (-2.0-2.0); ABG CO2 CONTENT 32.2 mmol/L (23-27); ABG HCO3 30.1 mmol/l (22-26); ABG TEMPERATURE 97.4 F (98.0-99.0); ARTERIAL BLOOD GAS PH 7.267 (7.35-7.45)
[2017-01-12 16:00] VITALS: BP 154/80
[2017-01-12 20:00] VITALS: BP 127/69
[2017-01-13] VITALS: BP 149/85
[2017-01-13 08:00] VITALS: BP 180/60
[2017-01-13 12:00] VITALS: BP 170/55
[2017-01-13 16:00] VITALS: BP 159/67
[2017-01-13 20:00] VITALS: BP 145/80
[2017-01-14] VITALS: BP 152/84; BP 155/90
[2017-01-14 08:00] VITALS: BP 150/56
[2017-01-14 12:00] VITALS: BP 170/66
[2017-01-14 16:00] VITALS: BP 156/50
[2017-01-14 20:00] VITALS: BP 157/51
[2017-01-15] VITALS: BP 179/53
[2017-01-15 06:11] LABS: BASO % 0.1 % (0.0-1.0); HEMATOCRIT 33.7 % (37.0-47.0); HEMOGLOBIN 10.4 g/dl (12.0-16.0); IG # 0.2 10*3/uL (0.0-0.1); LYMPH # 0.9 10*3/uL (1.3-4.4); LYMPH % 7.2 % (27.0-41.0); MEAN CELL VOLUME 94.1 fl (81.0-99.0); MEAN CORPUSCULAR HGB 29.1 pg (27.0-31.0); MEAN CORPUSCULAR HGB CONC 30.9 g/dl (33.0-37.0); MEAN PLATELET VOLUME 9.7 fl (9.6-12.3); MONO # 1.1 10*3/uL (0.1-1.0); MONO % 8.5 % (3.0-9.0); NEUT # 10.6 10*3/uL (2.3-7.9); PLATELET COUNT AUTOMATED 469 10*3/uL (130-400); RED BLOOD COUNT 3.58 10*6/uL (4.10-5.10); RED CELL DISTRI WIDTH 15.5 % (0-14.5); WHITE BLOOD COUNT 12.7 10*3/uL (4.8-10.8)
[2017-01-15 06:30] LABS: BUN 12 mg/dl (7-24); CARBON DIOXIDE 32 mmol/L (21-32); CHLORIDE 102 mmol/L (98-107); EST GLOM FILT AFRICAN AMERICAN > 60 ml/min; GLUCOSE 57 mg/dL (65-99); POTASSIUM 3.4 mmol/L (3.5-5.1); SODIUM 143 mmol/L (136-145)
[2017-01-15 08:00] VITALS: BP 150/58
[2017-01-15 12:00] VITALS: BP 165/53
[2017-01-15 16:00] VITALS: BP 160/51
[2017-01-15 20:00] VITALS: BP 157/52
[2017-01-16] VITALS: BP 140/52
[2017-01-16 06:22] LABS: BASO % 0.1 % (0.0-1.0); EOS % 0.2 % (1.0-4.0); HEMOGLOBIN 10.4 g/dl (12.0-16.0); IG # 0.1 10*3/uL (0.0-0.1); LYMPH # 0.7 10*3/uL (1.3-4.4); LYMPH % 7.7 % (27.0-41.0); MEAN CELL VOLUME 96.3 fl (81.0-99.0); MEAN CORPUSCULAR HGB 29.5 pg (27.0-31.0); MEAN CORPUSCULAR HGB CONC 30.6 g/dl (33.0-37.0); MEAN PLATELET VOLUME 9.7 fl (9.6-12.3); MONO % 12.1 % (3.0-9.0); NEUT # 6.8 10*3/uL (2.3-7.9); NEUT % 78.6 % (47.0-73.0); PLATELET COUNT AUTOMATED 405 10*3/uL (130-400); RED BLOOD COUNT 3.53 10*6/uL (4.10-5.10); RED CELL DISTRI WIDTH 15.8 % (0-14.5); WHITE BLOOD COUNT 8.6 10*3/uL (4.8-10.8)
[2017-01-16 06:34] LABS: BUN 14 mg/dl (7-24); CARBON DIOXIDE 40 mmol/L (21-32); CHLORIDE 99 mmol/L (98-107); EST GLOM FILT AFRICAN AMERICAN > 60 ml/min; GLUCOSE 87 mg/dL (65-99); POTASSIUM 3.2 mmol/L (3.5-5.1); SODIUM 143 mmol/L (136-145)
[2017-01-16 07:59] VITALS: BP 154/54
[2017-01-16 12:00] VITALS: BP 142/60
[2017-01-16 14:08] LABS: ORGANISM ID Not indicated. (.); SPECIMEN SOURCE Urine (.); STREPTOCOCCUS PNEUMONIAE AG Negative (Negative)
[2017-01-16 14:27] LABS: ABG BASE EXCESS 10.2 mmol/L (-2.0-2.0); ABG CO2 CONTENT 39.5 mmol/L (23-27); ABG HCO3 37.4 mmol/l (22-26); ABG TEMPERATURE 98.4 F (98.0-99.0); ARTERIAL BLOOD GAS PH 7.362 (7.35-7.45)
[2017-01-16 16:00] VITALS: BP 153/51
[2017-01-16 20:00] VITALS: BP 153/49
[2017-01-17] VITALS: BP 152/62
[2017-01-17 06:05] LABS: ALBUMIN 2.5 gm/dl (3.1-4.5); ALKALINE PHOSPHATASE 62 U/L (45-117); BILIRUBIN, TOTAL 0.3 mg/dl (0.2-1.0); BUN 16 mg/dl (7-24); CHLORIDE 100 mmol/L (98-107); EST GLOM FILT AFRICAN AMERICAN > 60 ml/min; GLUCOSE 97 mg/dL (65-99); POTASSIUM 3.7 mmol/L (3.5-5.1); SGOT/AST 22 IU/L (3-35); SGPT/ALT 25 U/L (12-78); SODIUM 146 mmol/L (136-145); TOTAL PROTEIN 5.2 gm/dL (6.4-8.2)
[2017-01-17 06:12] LABS: CARBON DIOXIDE 43 mmol/L (21-32)
[2017-01-17 06:13] LABS: BASO % 0.1 % (0.0-1.0); EOS # 0.1 10*3/uL (0.0-0.4); EOS % 0.6 % (1.0-4.0); HEMOGLOBIN 10.4 g/dl (12.0-16.0); IG # 0.1 10*3/uL (0.0-0.1); LYMPH # 0.7 10*3/uL (1.3-4.4); LYMPH % 8.9 % (27.0-41.0); MEAN CELL VOLUME 96.9 fl (81.0-99.0); MEAN CORPUSCULAR HGB 29.6 pg (27.0-31.0); MEAN CORPUSCULAR HGB CONC 30.6 g/dl (33.0-37.0); MEAN PLATELET VOLUME 9.7 fl (9.6-12.3); MONO # 0.8 10*3/uL (0.1-1.0); MONO % 9.5 % (3.0-9.0); NEUT # 6.5 10*3/uL (2.3-7.9); NEUT % 79.6 % (47.0-73.0); PLATELET COUNT AUTOMATED 406 10*3/uL (130-400); RED BLOOD COUNT 3.51 10*6/uL (4.10-5.10); RED CELL DISTRI WIDTH 15.9 % (0-14.5); WHITE BLOOD COUNT 8.2 10*3/uL (4.8-10.8)
[2017-01-17 07:07] LABS: ABG CO2 CONTENT 44.1 mmol/L (23-27); ABG HCO3 41.3 mmol/l (22-26); ABG TEMPERATURE 98.2 F (98.0-99.0); ARTERIAL BLOOD GAS PH 7.286 (7.35-7.45)
[2017-01-17 08:00] VITALS: BP 136/46
[2017-01-17 12:00] VITALS: BP 176/50
[2017-01-17 16:00] VITALS: BP 148/67
[2017-01-17 20:00] VITALS: BP 140/95
[2017-01-18] VITALS: BP 151/56
[2017-01-18 06:25] LABS: BUN 16 mg/dl (7-24); CARBON DIOXIDE 39 mmol/L (21-32); CHLORIDE 100 mmol/L (98-107); EST GLOM FILT AFRICAN AMERICAN > 60 ml/min; GLUCOSE 83 mg/dL (65-99); POTASSIUM 3.9 mmol/L (3.5-5.1); SODIUM 143 mmol/L (136-145)
[2017-01-18 08:00] VITALS: BP 154/76
[2017-01-18 12:00] VITALS: BP 170/60
[2017-01-18 15:52] VITALS: BP 151/54
[2017-01-18 20:00] VITALS: BP 182/70
[2017-01-19 00:06] VITALS: BP 136/78
[2017-01-19 08:00] VITALS: BP 174/74
[2017-01-19 12:00] VITALS: BP 131/43
[2017-01-19 16:00] VITALS: BP 139/45
[2017-01-19 20:00] VITALS: BP 160/57
[2017-01-20 00:14] VITALS: BP 142/62
[2017-01-20 07:25] LABS: BASO % 0.1 % (0.0-1.0); EOS # 0.1 10*3/uL (0.0-0.4); EOS % 0.8 % (1.0-4.0); HEMATOCRIT 33.4 % (37.0-47.0); IG # 0.1 10*3/uL (0.0-0.1); LYMPH # 0.9 10*3/uL (1.3-4.4); LYMPH % 10.3 % (27.0-41.0); MEAN CELL VOLUME 96.5 fl (81.0-99.0); MEAN CORPUSCULAR HGB 28.9 pg (27.0-31.0); MEAN CORPUSCULAR HGB CONC 29.9 g/dl (33.0-37.0); MEAN PLATELET VOLUME 9.4 fl (9.6-12.3); MONO # 0.7 10*3/uL (0.1-1.0); MONO % 7.7 % (3.0-9.0); NEUT # 7.2 10*3/uL (2.3-7.9); NEUT % 79.9 % (47.0-73.0); PLATELET COUNT AUTOMATED 345 10*3/uL (130-400); RED BLOOD COUNT 3.46 10*6/uL (4.10-5.10); RED CELL DISTRI WIDTH 15.6 % (0-14.5); WHITE BLOOD COUNT 9.1 10*3/uL (4.8-10.8)
[2017-01-20 07:49] LABS: ALBUMIN 2.3 gm/dl (3.1-4.5); ALKALINE PHOSPHATASE 63 U/L (45-117); BILIRUBIN, TOTAL 0.4 mg/dl (0.2-1.0); BUN 16 mg/dl (7-24); CHLORIDE 97 mmol/L (98-107); EST GLOM FILT AFRICAN AMERICAN > 60 ml/min; GLUCOSE 93 mg/dL (65-99); POTASSIUM 3.8 mmol/L (3.5-5.1); SGOT/AST 15 IU/L (3-35); SGPT/ALT 21 U/L (12-78); SODIUM 145 mmol/L (136-145); TOTAL PROTEIN 4.8 gm/dL (6.4-8.2)
[2017-01-20 08:00] VITALS: BP 152/56
[2017-01-20 08:07] LABS: CARBON DIOXIDE 47 mmol/L (21-32)
[2017-01-20 12:00] VITALS: BP 146/62
[2017-01-20 16:00] VITALS: BP 146/51
[2017-01-20 20:00] VITALS: BP 130/45
[2017-01-21 00:03] VITALS: BP 130/50
[2017-01-21 06:26] LABS: BASO % 0.1 % (0.0-1.0); EOS # 0.1 10*3/uL (0.0-0.4); EOS % 1.1 % (1.0-4.0); HEMATOCRIT 32.2 % (37.0-47.0); HEMOGLOBIN 9.8 g/dl (12.0-16.0); IG # 0.1 10*3/uL (0.0-0.1); LYMPH # 1.4 10*3/uL (1.3-4.4); MEAN CELL VOLUME 97.3 fl (81.0-99.0); MEAN CORPUSCULAR HGB 29.6 pg (27.0-31.0); MEAN CORPUSCULAR HGB CONC 30.4 g/dl (33.0-37.0); MEAN PLATELET VOLUME 9.6 fl (9.6-12.3); MONO # 0.7 10*3/uL (0.1-1.0); MONO % 6.7 % (3.0-9.0); PLATELET COUNT AUTOMATED 313 10*3/uL (130-400); RED BLOOD COUNT 3.31 10*6/uL (4.10-5.10); RED CELL DISTRI WIDTH 15.7 % (0-14.5); WHITE BLOOD COUNT 10.3 10*3/uL (4.8-10.8)
[2017-01-21 06:56] LABS: ALBUMIN 2.2 gm/dl (3.1-4.5); ALKALINE PHOSPHATASE 61 U/L (45-117); BILIRUBIN, TOTAL 0.3 mg/dl (0.2-1.0); BUN 19 mg/dl (7-24); CHLORIDE 100 mmol/L (98-107); EST GLOM FILT AFRICAN AMERICAN > 60 ml/min; GLUCOSE 82 mg/dL (65-99); MAGNESIUM 1.6 mg/dL (1.5-2.1); PHOSPHOROUS 2.3 mg/dL (2.5-4.9); POTASSIUM 3.7 mmol/L (3.5-5.1); SGOT/AST 13 IU/L (3-35); SGPT/ALT 20 U/L (12-78); SODIUM 140 mmol/L (136-145); TOTAL PROTEIN 4.5 gm/dL (6.4-8.2)
[2017-01-21 07:06] LABS: CARBON DIOXIDE 41 mmol/L (21-32)
[2017-01-21 08:00] VITALS: BP 103/60
[2017-01-21 09:00] VITALS: BP 110/60
[2017-01-21 12:00] VITALS: BP 120/48
[2017-01-21 16:00] VITALS: BP 116/42
[2017-01-21 20:00] VITALS: BP 128/70
[2017-01-22 00:21] VITALS: BP 147/59
[2017-01-22 07:14] LABS: BASO % 0.2 % (0.0-1.0); EOS # 0.1 10*3/uL (0.0-0.4); HEMATOCRIT 32.8 % (37.0-47.0); HEMOGLOBIN 9.9 g/dl (12.0-16.0); IG # 0.1 10*3/uL (0.0-0.1); LYMPH # 1.4 10*3/uL (1.3-4.4); LYMPH % 12.6 % (27.0-41.0); MEAN CELL VOLUME 96.5 fl (81.0-99.0); MEAN CORPUSCULAR HGB 29.1 pg (27.0-31.0); MEAN CORPUSCULAR HGB CONC 30.2 g/dl (33.0-37.0); MEAN PLATELET VOLUME 9.5 fl (9.6-12.3); MONO # 0.8 10*3/uL (0.1-1.0); MONO % 7.5 % (3.0-9.0); NEUT # 8.6 10*3/uL (2.3-7.9); NEUT % 77.5 % (47.0-73.0); PLATELET COUNT AUTOMATED 303 10*3/uL (130-400); RED CELL DISTRI WIDTH 15.9 % (0-14.5); WHITE BLOOD COUNT 11.1 10*3/uL (4.8-10.8)
[2017-01-22 07:37] LABS: ALBUMIN 2.3 gm/dl (3.1-4.5); ALKALINE PHOSPHATASE 65 U/L (45-117); BILIRUBIN, TOTAL 0.3 mg/dl (0.2-1.0); BUN 22 mg/dl (7-24); CARBON DIOXIDE 39 mmol/L (21-32); CHLORIDE 105 mmol/L (98-107); EST GLOM FILT AFRICAN AMERICAN > 60 ml/min; GLUCOSE 80 mg/dL (65-99); MAGNESIUM 1.6 mg/dL (1.5-2.1); PHOSPHOROUS 3.8 mg/dL (2.5-4.9); POTASSIUM 3.9 mmol/L (3.5-5.1); SGOT/AST 13 IU/L (3-35); SGPT/ALT 21 U/L (12-78); SODIUM 129 mmol/L (136-145); TOTAL PROTEIN 4.7 gm/dL (6.4-8.2)
[2017-01-22 08:00] VITALS: BP 146/50
[2017-01-22 12:00] VITALS: BP 153/49
[2017-01-22 16:00] VITALS: BP 139/46
[2017-01-22 20:00] VITALS: BP 149/50
[2017-01-23] VITALS: BP 142/52
[2017-01-23 07:15] LABS: BASO % 0.2 % (0.0-1.0); EOS # 0.1 10*3/uL (0.0-0.4); HEMATOCRIT 31.4 % (37.0-47.0); HEMOGLOBIN 9.5 g/dl (12.0-16.0); IG # 0.1 10*3/uL (0.0-0.1); LYMPH # 1.9 10*3/uL (1.3-4.4); LYMPH % 20.3 % (27.0-41.0); MEAN CELL VOLUME 96.3 fl (81.0-99.0); MEAN CORPUSCULAR HGB 29.1 pg (27.0-31.0); MEAN CORPUSCULAR HGB CONC 30.3 g/dl (33.0-37.0); MEAN PLATELET VOLUME 9.8 fl (9.6-12.3); MONO # 0.8 10*3/uL (0.1-1.0); MONO % 8.5 % (3.0-9.0); NEUT # 6.5 10*3/uL (2.3-7.9); NEUT % 68.5 % (47.0-73.0); PLATELET COUNT AUTOMATED 307 10*3/uL (130-400); RED BLOOD COUNT 3.26 10*6/uL (4.10-5.10); RED CELL DISTRI WIDTH 15.8 % (0-14.5); WHITE BLOOD COUNT 9.4 10*3/uL (4.8-10.8)
[2017-01-23 07:34] LABS: CHLORIDE 104 mmol/L (98-107); GLUCOSE 80 mg/dL (65-99); POTASSIUM 3.8 mmol/L (3.5-5.1); SODIUM 135 mmol/L (136-145)
[2017-01-23 07:36] LABS: BUN 24 mg/dl (7-24); CARBON DIOXIDE 39 mmol/L (21-32); EST GLOM FILT AFRICAN AMERICAN > 60 ml/min
[2017-01-23 08:00] VITALS: BP 122/56
[2017-01-23 12:00] VITALS: BP 119/51
[2017-01-23 16:00] VITALS: BP 134/46
[2017-01-23 20:00] VITALS: BP 146/48
[2017-01-24 00:38] VITALS: BP 132/52
[2017-01-24 06:34] LABS: BASO % 0.3 % (0.0-1.0); EOS # 0.1 10*3/uL (0.0-0.4); EOS % 1.2 % (1.0-4.0); HEMOGLOBIN 9.1 g/dl (12.0-16.0); IG # 0.2 10*3/uL (0.0-0.1); LYMPH # 2.2 10*3/uL (1.3-4.4); LYMPH % 23.2 % (27.0-41.0); MEAN CELL VOLUME 96.5 fl (81.0-99.0); MEAN CORPUSCULAR HGB 29.3 pg (27.0-31.0); MEAN CORPUSCULAR HGB CONC 30.3 g/dl (33.0-37.0); MEAN PLATELET VOLUME 9.7 fl (9.6-12.3); MONO # 0.9 10*3/uL (0.1-1.0); MONO % 9.5 % (3.0-9.0); NEUT # 5.9 10*3/uL (2.3-7.9); NEUT % 63.6 % (47.0-73.0); PLATELET COUNT AUTOMATED 299 10*3/uL (130-400); RED BLOOD COUNT 3.11 10*6/uL (4.10-5.10); RED CELL DISTRI WIDTH 15.9 % (0-14.5); WHITE BLOOD COUNT 9.3 10*3/uL (4.8-10.8)
[2017-01-24 07:04] LABS: CHLORIDE 102 mmol/L (98-107); POTASSIUM 4.1 mmol/L (3.5-5.1); SODIUM 143 mmol/L (136-145)
[2017-01-24 07:08] LABS: BUN 22 mg/dl (7-24); CARBON DIOXIDE 37 mmol/L (21-32); EST GLOM FILT AFRICAN AMERICAN > 60 ml/min; GLUCOSE 77 mg/dL (65-99)
[2017-01-24 08:00] VITALS: BP 142/60
[2017-01-24] MEDS ORDERED: BSC (09:37)
[2017-01-24 12:00] VITALS: BP 123/51
[2017-01-24] MEDS ORDERED: NITROFURANTOIN100 M9 PO (12:02)
[2017-01-24] MEDS ORDERED: D-1000 185 MG-11 TAB PO (12:02)
[2017-01-24] MEDS ORDERED: PREDNISONE10 MG PO (12:02)
[2017-01-24] MEDS ORDERED: FUROSEMIDE20 M1 PO (12:02)
[2017-01-24] MEDS ORDERED: ACETAZOLAMIDE250 MG PO (12:02)
[2017-01-24] MEDS ORDERED: KLOR-CON M1010 ME1 PO (12:02)
[2017-01-24 12:53] LABS: BILIRUBIN NEGATIVE (NEGATIVE); BLOOD 3+ (NEGATIVE); CLARITY CLOUDY (CLEAR); COLOR YELLOW (YELLOW); GLUCOSE NEGATIVE (NEGATIVE); KETONE NEGATIVE (NEGATIVE); LEUKO ESTERASE 1+ (NEGATIVE); NITRITE NEGATIVE (NEGATIVE); PH 8.5 (5.0-9.0); PROTEIN 1+ (NEGATIVE)
[2017-01-24 13:45] LABS: BACTERIA 1+; RBC 41-50 rbc/hpf (0-2); URINE REFLEX COMMENT YES (NO); WBC 51-100 wbc/hpf (0-5); YEAST 1+
== END 2017-01-24 15:52 | disposition home health service (06) | DRG 871 ==
LOC: ED 19:04 → 5E 20:58 → EDHOLD 20:58 → 5E 21:44
PROVIDERS: Emergency Medicine; Internal Medicine; Internal Medicine Critical Care Medicine; Internal Medicine Hospice and Palliative Medicine; Registered Nurse; Student in an Organized Health Care Education/Training Program
PROC: 5A09557 Assistance with Respiratory Ventilation, Greater than 96 Consecutive Hours, Continuous Positive Airway Pressure (ICD-10-PCS; principal; 2017-01-12)
PROC: 02HV33Z Insertion of Infusion Device into Superior Vena Cava, Percutaneous Approach (ICD-10-PCS; principal; 2017-01-12)
DX: A41.9 Sepsis, unspecified organism (principal); J96.22 Acute and chronic respiratory failure with hypercapnia; J96.21 Acute and chronic respiratory failure with hypoxia; J69.0 Pneumonitis due to inhalation of food and vomit; E43 Unspecified severe protein-calorie malnutrition; G93.41 Metabolic encephalopathy; E87.2 Acidosis; N39.0 Urinary tract infection, site not specified; B96.20 Unspecified Escherichia coli [E. coli] as the cause of diseases classified elsewhere; E11.9 Type 2 diabetes mellitus without complications; J44.0 Chronic obstructive pulmonary disease with (acute) lower respiratory infection; J44.1 Chronic obstructive pulmonary disease with (acute) exacerbation; R00.1 Bradycardia, unspecified; Z66 Do not resuscitate; I10 Essential (primary) hypertension; F41.9 Anxiety disorder, unspecified; K21.9 Gastro-esophageal reflux disease without esophagitis; M47.816 Spondylosis without myelopathy or radiculopathy, lumbar region; D47.3 Essential (hemorrhagic) thrombocythemia; E78.00 Pure hypercholesterolemia, unspecified; E83.39 Other disorders of phosphorus metabolism; D63.8 Anemia in other chronic diseases classified elsewhere; G89.29 Other chronic pain; M54.9 Dorsalgia, unspecified; E78.5 Hyperlipidemia, unspecified; Z88.1 Allergy status to other antibiotic agents; Z88.0 Allergy status to penicillin; Z79.899 Other long term (current) drug therapy; Z98.51 Tubal ligation status; Z90.710 Acquired absence of both cervix and uterus; Z82.49 Family history of ischemic heart disease and other diseases of the circulatory system; Z80.8 Family history of malignant neoplasm of other organs or systems; Z99.81 Dependence on supplemental oxygen; Z87.891 Personal history of nicotine dependence; Z68.20 Body mass index [BMI] 20.0-20.9, adult; Z87.81 Personal history of (healed) traumatic fracture

== ENCOUNTER 2017-02-14 08:32 | Inpatient (IN) | payer OTHER ==
[~2017-02-14] VITALS: Ht 152.4 cm; Wt 42.7 kg
--- NOTE | ~2017-02-14 | PR ---
[place], [place] PROGRESS NOTE NAME: [facility]IS [facility]ASPAR [id number] UNIT #: [id number] ROOM: 526 DOCTOR: DEBBIE RHODES MD,FLAVIA BIRTHDATE: [birth year] DOS: 02/16/2017 SUBJECTIVE: The patient has been noted comfortable at this time without any distress. The patient has been doing very well and using noninvasive ventilator this morning, resting comfortably at time of the assessment. OBJECTIVE: VITAL SIGNS: For the patient which were recorded showed the temperature noted as normal, respiratory rate 16, heart rate 81, blood pressure 150/51-151/78. Intake for the patient 1030, output 602 mL. The pulse oxygen saturation on room air 98% saturation. HEENT: Examination shows no new change. NECK: Supple. CARDIOVASCULAR: S1, S2 audible. LUNGS: The patient was noted without any wheezing or crackles at this time. ABDOMEN: Soft, nontender. LABORATORY DATA: Blood cultures showing no bacterial growth, 2/2 cultures. Urine culture moderate growth of Klebsiella pneumoniae. IMPRESSION: The patient with acute exacerbation of chronic obstructive pulmonary disease, acute tracheobronchitis, resolving, status post fall without any major bony injury, history of chronic osteoporosis. PLAN OF TREATMENT: Continue the patient's current therapy, plan of management at this time without any changes. Continue her usual plan of care as previously in progress. The patient could be discharged home on oral medications from the Pulmonary standpoint if necessary. FLAVIA LEWIS MD CM:PNTRANS [id number] FLAVIA RHODES MD 02/17/17 0548 interface
--- NOTE | ~2017-02-14 | CON ---
[place], [place] REPORT OF CONSULTATION NAME: LUIS GASPAR UNIT #: [id number] ROOM: 526 DOCTOR: FLAVIA ELDRIDGE MD BIRTHDATE: [birth year] DOS: 02/15/2017 PULMONARY CONSULTATION EVALUATION AND MANAGEMENT CONSULTATION REQUESTED BY: Hospitalist services for assessment of COPD exacerbation. HISTORY OF PRESENT ILLNESS: This is a 71 years old white female brought to the hospital Emergency Room as the patient fell down at home backward. The patient has been assessed for any bony injury and noted with wheezing for the patient as well requiring hospitalization. The patient has been currently getting the bronchodilators, antibiotics and IV Solu-Medrol. The patient stated symptoms have been improving including coughing and wheezing. Denies symptoms of chest pain or any abdominal pain. The patient denies any symptoms of hemoptysis. REVIEW OF SYSTEMS: Remaining systems were reviewed for this patient as follows: CONSTITUTIONAL SYMPTOMS: Fatigue and tiredness described. No fever or chills. EYES: Denies burning, redness, or tenderness. EARS, NOSE, THROAT SYMPTOMS: No sore throat, hoarseness, otalgia, postnasal drainage. CARDIOVASCULAR SYSTEM: Denies anginal pain, edema of the lower extremities. GASTROINTESTINAL SYMPTOMS: Denies dysphagia, nausea, vomiting, diarrhea, abdominal pain, hematemesis, melena or hematochezia. SKIN: Denies lesions or rashes. MUSCULOSKELETAL SYMPTOMS: Denies any acute joint pain, redness, or tenderness. SKIN: Denies any lesions or rashes for the patient with chronic bruising which has been noted of the skin of the patient intermittently related to use of prednisone treatment at home. MUSCULOSKELETAL SYMPTOMS: Denies acute joint pain, redness or tenderness at this time. CENTRAL NERVOUS SYSTEM: No dizziness, headache, diplopia or syncopal episodes. Remaining systems were reviewed with the patient, they were noted all negative. PAST MEDICAL HISTORY: As follows, 1. Advanced centrilobular emphysema. 2. Chronic hypercapnic hypoxic respiratory failure. 3. 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 4. Diverticulosis. 5. Spastic colon. Several compression fracture of the thoracic spine, atraumatic for this patient, treated with the kyphoplasty previously. 6. Coronary artery disease. 7. Past history of nicotine abuse. 8. Type 2 diabetes mellitus. 9. Gastroesophageal reflux disease. 10. Essential hypertension. 11. MATILDA infection, untreated because of several medication allergy related to the current first line drug medications. 12. Multilevel compression fracture of the patient kyphoplasty in the past. [place], [place] REPORT OF CONSULTATION NAME: LUIS GASPAR UNIT #: [id number] ROOM: 526 DOCTOR: FLAVIA ELDRIDGE MD BIRTHDATE: [birth year] PAST SURGICAL HISTORY: 1. Complete hysterectomy. 2. Tubal ligation. 3. Left carotid endarterectomy. 4. Several therapeutic bronchoscopies as well. 5. Left malleolar fracture. 6. Vertebroplasty T10 and T12 vertebral bone. SOCIAL HISTORY: The patient is , has 4 children, lives at home. Denies history of alcohol use or drug use. Tobacco use was noted since age of [age] years old, 1 pack of cigarettes per day that has been discontinued the patient in the beginning of 2016. Denies history of alcohol use or illicit drug use. FAMILY HISTORY: Mother at the age of 7272 years old complication of cancer of the colon. Father at the age of 5050 years old, complication of cancer of the lung. MEDICATIONS: The current administered medications noted use of vitamin D, aspirin, Plavix, citalopram, Protonix, simvastatin, gabapentin, IV Solu-Medrol 60 mg 8 hours, Diamox, Fosamax, DuoNeb, meropenem, doxycycline and other medications p.r.n. administration. DRUG ALLERGIES HISTORY: The patient was noted as allergy: 1. ZITHROMAX. 2. LEVAQUIN. PHYSICAL EXAMINATION: GENERAL: This is a 71 years old white female who has been noted currently awake and alert without any distress at time of the assessment. Height of 5 feet, weight of 94 pounds, BMI 18.3. VITAL SIGNS: For the patient which has been recorded showed the temperature of the patient noted as normal. The respiratory rate of the patient recorded as 18, heart rate 70, blood pressure 132/48. The pulse oxygen saturation of the patient noted as 100% 3 liters nasal cannula. HEENT: Head was atraumatic. Eyes nonicterus. NECK: Supple. CARDIOVASCULAR SYSTEM: S1, S2 audible. LUNGS: Scattered crackles of the lungs. Mild expiratory wheezing noted in the lungs bilaterally. ABDOMEN: Soft, nontender. Bowel sounds present. EXTREMITIES: Show no edema, clubbing or cyanosis. CENTRAL NERVOUS SYSTEM: Cranial nerves 2-12 intact. MUSCULOSKELETAL: Does not show any major deformities of any joints. LABORATORY DATA: CBC of the patient of this morning, hemoglobin 9.4, hematocrit 31.8, WBC count normal, platelet count was normal. The BMP for this patient that was done this morning for this patient was noted BUN 28, creatinine was normal, glucose 155. CMP yesterday on admission, BUN 22, creatinine 1.22. Lactic acid was noted 1.1. CBC of the patient yesterday was noted mild anemia. The platelet count mildly elevated to 456. WBC count was normal. CT scan of [place], [place] REPORT OF CONSULTATION NAME: LUIS GASPAR UNIT #: [id number] ROOM: 52 DOCTOR: DEBBIE RHODES MD,[facility] BIRTHDATE: [birth year] the head of the patient does not show any acute intracranial abnormalities. CT scan of the cervical spine for the patient was also done for the patient that does not show any acute fracture or misalignment. The CT of the lumbar and thoracic spine was also completed for this patient shows stable degenerative changes for the patient with chronic compression deformity of L2. There was no significant stenosis of the patient noted of the spinal foramina. IMPRESSION: 1. The patient who had been currently admitted to the hospital after a fall, was noted exacerbation of chronic obstructive pulmonary disease for this patient without any acute compression fracture for the patient or other bony injury after recent fall at home for the patient. 2. History of chronic prednisone dependency as well. 3. History of past Mycobacterium avium-intracellulare infection and tobacco dependence. 4. Chronic hypercapnic respiratory failure as well. PLAN OF TREATMENT: The patient has been set up with the noninvasive ventilator, which had been used by the patient resulting in improvement in the overall respiratory status in the home settings. The dose of Solu-Medrol for the patient will be decreased for the patient 40 mg b.i.d. dosing. Further treatment plan of management for the patient to be continued for this patient based on the progression of the illness. Consider possible discharge home in the home setting for this patient on oral medications with the tapering dose of prednisone until she reaches her tapering usual dose of 10 mg daily for the next 9 days, possibly. Solu-Medrol dose has been made once a day for the patient 40 mg daily at this time. Continuation of bronchodilator. Continue pain management. Other usual plan of therapy, care and treatment. FLAVIA LEWIS MD CM:CONSTR:REPORT OF CONSULTATION [id number] 02/15/17 [id number]
[~2017-02-14 08:32] MED LIST changes: +ACETAZOLAMIDE250 MG PO; +BSC; +D-1000 185 MG-11 TAB PO; +FUROSEMIDE20 M1 PO; +KLOR-CON M1010 ME1 PO; +NITROFURANTOIN100 M9 PO
[2017-02-14 08:38] VITALS: BP 112/50
[2017-02-14 09:34] LABS: BASO # 0.1 10*3/uL (0.0-0.1); BASO % 0.7 % (0.0-1.0); EOS # 0.1 10*3/uL (0.0-0.4); EOS % 0.7 % (1.0-4.0); HEMATOCRIT 36.2 % (37.0-47.0); HEMOGLOBIN 10.6 g/dl (12.0-16.0); IG # 0.2 10*3/uL (0.0-0.1); LYMPH # 1.9 10*3/uL (1.3-4.4); LYMPH % 19.9 % (27.0-41.0); MEAN CELL VOLUME 98.6 fl (81.0-99.0); MEAN CORPUSCULAR HGB 28.9 pg (27.0-31.0); MEAN CORPUSCULAR HGB CONC 29.3 g/dl (33.0-37.0); MONO # 0.7 10*3/uL (0.1-1.0); MONO % 7.3 % (3.0-9.0); NEUT # 6.6 10*3/uL (2.3-7.9); NEUT % 69.7 % (47.0-73.0); NUCLEATED RED BLOOD CELL 0.2 % (0.0-0.0); PLATELET COUNT AUTOMATED 456 10*3/uL (130-400); RED BLOOD COUNT 3.67 10*6/uL (4.10-5.10); RED CELL DISTRI WIDTH 15.7 % (0-14.5); WHITE BLOOD COUNT 9.4 10*3/uL (4.8-10.8)
[2017-02-14 09:36] LABS: BILIRUBIN 1+ (NEGATIVE); BLOOD NEGATIVE (NEGATIVE); CLARITY SL CLOUDY (CLEAR); COLOR YELLOW (YELLOW); GLUCOSE NEGATIVE (NEGATIVE); KETONE NEGATIVE (NEGATIVE); LEUKO ESTERASE 1+ (NEGATIVE); NITRITE NEGATIVE (NEGATIVE); PROTEIN NEGATIVE (NEGATIVE); SPECIFIC GRAVITY >= 1.030 (1.005-1.030); UROBILINOGEN 0.2 E.U./dl (0.2-1.0)
[2017-02-14 09:45] LABS: INTERNATIONAL NORM RATIO 0.9 (2.0-3.5); PROTHROMBIN TIME 9.8 SECONDS (9.0-12.4)
[2017-02-14 09:51] LABS: MUCOUS TRACE; WBC 51-100 wbc/hpf (0-5)
[2017-02-14 09:52] LABS: URINE REFLEX COMMENT YES (NO)
[2017-02-14 09:54] LABS: BILIRUBIN, TOTAL 0.4 mg/dl (0.2-1.0); BUN 22 mg/dl (7-24); C-REACTIVE PROTEIN 4.53 MG/DL (0-0.3); CARBON DIOXIDE 28 mmol/L (21-32); CHLORIDE 108 mmol/L (98-107); CKMB 1.3 ng/ml (0.5-3.6); CPK 19 U/L (26-192); EST GLOM FILT AFRICAN AMERICAN 52 ml/min; GLUCOSE 88 mg/dL (65-99); MAGNESIUM 2.4 mg/dL (1.5-2.1); POTASSIUM 4.2 mmol/L (3.5-5.1); SGOT/AST 10 IU/L (3-35); SGPT/ALT 16 U/L (12-78); SODIUM 145 mmol/L (136-145); TOTAL PROTEIN 6.5 gm/dL (6.4-8.2)
[2017-02-14 09:56] LABS: ALKALINE PHOSPHATASE 87 U/L (45-117); TROPONIN I < 0.015 ng/ml (<0.045)
[2017-02-14 11:01] VITALS: BP 84/40
[2017-02-14 12:33] VITALS: BP 102/38; BP 112/48
[2017-02-14 16:00] VITALS: BP 121/71
[2017-02-14 20:00] VITALS: BP 118/46; BP 121/71
[2017-02-15 00:26] VITALS: BP 122/54
[2017-02-15 04:38] VITALS: BP 138/46
[2017-02-15 07:31] LABS: BASO % 0.2 % (0.0-1.0); HEMATOCRIT 31.8 % (37.0-47.0); HEMOGLOBIN 9.4 g/dl (12.0-16.0); IG # 0.1 10*3/uL (0.0-0.1); LYMPH # 0.7 10*3/uL (1.3-4.4); LYMPH % 12.1 % (27.0-41.0); MEAN CELL VOLUME 97.5 fl (81.0-99.0); MEAN CORPUSCULAR HGB 28.8 pg (27.0-31.0); MEAN CORPUSCULAR HGB CONC 29.6 g/dl (33.0-37.0); MEAN PLATELET VOLUME 9.3 fl (9.6-12.3); MONO # 0.1 10*3/uL (0.1-1.0); MONO % 2.4 % (3.0-9.0); NEUT % 84.3 % (47.0-73.0); NUCLEATED RED BLOOD CELL 0.3 % (0.0-0.0); PLATELET COUNT AUTOMATED 376 10*3/uL (130-400); RED BLOOD COUNT 3.26 10*6/uL (4.10-5.10); RED CELL DISTRI WIDTH 15.2 % (0-14.5); WHITE BLOOD COUNT 5.9 10*3/uL (4.8-10.8)
[2017-02-15 07:57] LABS: BUN 28 mg/dl (7-24); CARBON DIOXIDE 28 mmol/L (21-32); CHLORIDE 108 mmol/L (98-107); EST GLOM FILT AFRICAN AMERICAN > 60 ml/min; GLUCOSE 155 mg/dL (65-99); POTASSIUM 4.1 mmol/L (3.5-5.1); SODIUM 144 mmol/L (136-145)
[2017-02-15 08:00] VITALS: BP 136/62
[2017-02-15 08:02] LABS: FREE T4 0.89 ng/dl (0.76-1.46)
[2017-02-15 12:00] VITALS: BP 132/48
[2017-02-15 16:00] VITALS: BP 127/74
[2017-02-15 20:00] VITALS: BP 135/95
[2017-02-16] VITALS: BP 157/52
[2017-02-16 08:00] VITALS: BP 151/78
[2017-02-16 12:00] VITALS: BP 150/51
[2017-02-16] MEDS ORDERED: PREDNISONE10 MG PO (13:36)
[2017-02-16] MEDS ORDERED: DOXYCYCLINE MO100 M1 PO (13:36)
== END 2017-02-16 16:20 | disposition home or self-care (01) | DRG 682 ==
LOC: ED 08:32 → EDHOLD 11:22 → 5E 11:59
PROVIDERS: Emergency Medicine; Internal Medicine Hospice and Palliative Medicine
PROC: 5A09357 Assistance with Respiratory Ventilation, Less than 24 Consecutive Hours, Continuous Positive Airway Pressure (ICD-10-PCS; principal; 2017-02-15)
DX: N17.0 Acute kidney failure with tubular necrosis (principal); G93.41 Metabolic encephalopathy; J18.9 Pneumonia, unspecified organism; J96.11 Chronic respiratory failure with hypoxia; E44.0 Moderate protein-calorie malnutrition; N39.0 Urinary tract infection, site not specified; Z99.81 Dependence on supplemental oxygen; J44.0 Chronic obstructive pulmonary disease with (acute) lower respiratory infection; Z68.1 Body mass index [BMI] 19.9 or less, adult; J44.1 Chronic obstructive pulmonary disease with (acute) exacerbation; F41.9 Anxiety disorder, unspecified; K21.9 Gastro-esophageal reflux disease without esophagitis; D64.9 Anemia, unspecified; D47.3 Essential (hemorrhagic) thrombocythemia; E83.41 Hypermagnesemia; I10 Essential (primary) hypertension; T14.8 Other injury of unspecified body region; E78.1 Pure hyperglyceridemia; I25.10 Atherosclerotic heart disease of native coronary artery without angina pectoris; E11.9 Type 2 diabetes mellitus without complications; M47.816 Spondylosis without myelopathy or radiculopathy, lumbar region; W19.XXXA Unspecified fall, initial encounter; B96.1 Klebsiella pneumoniae [K. pneumoniae] as the cause of diseases classified elsewhere; J20.9 Acute bronchitis, unspecified; M81.0 Age-related osteoporosis without current pathological fracture; Z90.49 Acquired absence of other specified parts of digestive tract; Z90.710 Acquired absence of both cervix and uterus; Z98.51 Tubal ligation status; Z87.891 Personal history of nicotine dependence; Z82.49 Family history of ischemic heart disease and other diseases of the circulatory system; Z80.8 Family history of malignant neoplasm of other organs or systems; Z88.0 Allergy status to penicillin; Z88.1 Allergy status to other antibiotic agents; Z79.51 Long term (current) use of inhaled steroids; Z79.82 Long term (current) use of aspirin; Z79.899 Other long term (current) drug therapy; Y93.89 Activity, other specified; Y92.098 Other place in other non-institutional residence as the place of occurrence of the external cause; Y99.8 Other external cause status; Z86.19 Personal history of other infectious and parasitic diseases; Z80.0 Family history of malignant neoplasm of digestive organs; Z80.1 Family history of malignant neoplasm of trachea, bronchus and lung